=== PATIENT | female | born 1975 | race Two or more races ===

== ENCOUNTER 2017-01-13 01:22 | Emergency (ER) | payer OTHER ==
[2017-01-13 01:50] VITALS: BP 142/78; PULSE 93; TEMP 98; BMI 32.8
[2017-01-13] MEDS ORDERED: SODIUM CHLORIDE 1,000 ML IV STA (02:02)
[2017-01-13] MEDS ORDERED: morphine CARPU-JECT 4 MG/1 ML DISP.SYRIN IVPUSH ONE (02:02)
[2017-01-13] MEDS ORDERED: ONDANSETRON 4 MG/2 ML VIAL IVPB ONE (02:02)
--- NOTE | 2017-01-13 02:03 | PDOC ---
History of Present Illness - General Chief Complaint: Pain, Acute Stated Complaint: ABD PAIN,DIARRHEA Time Seen by Provider: 01/13/17 01:45 History Source: Patient Exam Limitations: No Limitations - History of Present Illness Travel History: No Initial Comments: 01/13/17 01:56 41yo Female patient w/ h/o DM presents to ED c/o abd pain x 2 days with nausea, diarrhea and bloating. Patient states she took Imodium for sx relief, which her stools went from diarrhea to soft, but abd pain remain. She describes pain as sharp and in waves. No change in appetite. Last FS at 8pm 287: 10 units of Novolog taken. Patient denies CP, Back pain, vomiting, constipation, fever, diff breathing, dysuria, hematuria, rectal bleeding or any other complaints at this time. Timing/Duration: reports: getting worse Quality: reports: moderate, sharpness Abdominal Pain Onset Location: reports: RLQ, LLQ Pain Radiation: reports: no radiation Activities at Onset: reports: no specific activity Treatment Prior to Arrive: improves with: other (Imodium) Aggravating Factors: worse with: None, Defecation, Eating, Emotional upset, Exertion, [place], Movement, Voiding, Change in position Alleviating Factors: worse with: None, Belching, Shallow Breathing, Defecation, Eating, Holding Breath, Passing Gas, Change in Position, Rest, Voiding, Vomiting Past History - Travel Traveled outside of the country in the last 30 days: No Close contact w/someone who was outside of country & ill: No - Past Medical History Allergies/Adverse Reactions: Allergies Allergy/AdvReac Type Severity Reaction Status Date / Time No Known Allergies Allergy Verified 01/13/17 01:45 Home Medications: Ambulatory Orders Insulin Aspart [Novolog] 10 units SQ TID 01/13/17 Oxycodone HCl/Acetaminophen [Endocet 5-325 Tablet] 1 each PO Q6H PRN #12 tablet MDD 4 tabs 01/13/17 Diabetes: Yes (IDDM) Thyroid Disease: Yes (BENIGN 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) - Family Disease History Family Disease History: Diabetes: Mother - Psycho/Social/Smoking Cessation Hx Anxiety: No Suicidal Ideation: No Smoking Status: Yes Smoking History: Current every day smoker Have you smoked in the past 12 months: No Number of Cigarettes Smoked Daily: 10 Information on smoking cessation initiated: No 'Breaking Loose' booklet given: 04/29/14 Hx Alcohol Use: No Drug/Substance Use Hx: No Substance Use Type: None Abd/GI Specific PMHX - Complaint Specific PMHX Colitis: No Diverticulitis: No Gall Bladder Disease: No GERD: No Hepatitis: No Irritable Bowel Synd (IBS): No Pancreatitis: No GI Ulcer Disease: No Review of Systems - Review of Systems Able to Perform ROS?: Yes Is the patient limited Icelandic proficient: No Constitutional: No: Chills, Fever Respiratory: No: Cough, Orthopnea, Shortness of Breath, Stridor, Wheezing Cardiac (ROS): No: Chest Pain, Edema, Lightheadedness, Palpitations, Syncope, Chest Tightness ABD/GI: Yes: Abdominal Distended, Diarrhea, Nausea, Abdominal cramping. No: Abd. Pain w/ defecation, Blood Streaked Bowels, Constipated, Difficulty Swallowing, Poor Appetite, Poor Fluid Intake, Rectal Bleeding, Vomiting, Indigestion, Tarry Stools : No: Burning, Dysuria, Discharge, Frequency, Flank Pain, Hematuria, Pain, Urgency Musculoskeletal: No: Back Pain Integumentary: No: Bruising, Erythema, Rash, Sweating Neurological: No: Headache, Numbness, Paresthesia, Seizure, Tingling, Tremors, Weakness All Other Systems: Reviewed and Negative *Physical Exam - Vital Signs Last Vital Signs Temp Pulse Resp BP Pulse Ox 98.0 F 93 H 20 142/78 99 01/13/17 01:46 01/13/17 01:46 01/13/17 01:46 01/13/17 01:46 01/13/17 01:46 - Physical Exam General Appearance: Yes: Nourished, Appropriately Dressed, Mild Distress. No: Apparent Distress, Moderate Distress, Severe Distress Respiratory/Chest: positive: Lungs Clear, Normal Breath Sounds. negative: Respiratory Distress, Accessory Muscle Use, Labored Respiration, Rapid RR, Crackles, Rales, Rhonchi, Stridor Cardiovascular: positive: Regular Rhythm, Regular Rate. negative: Edema, JVD, Murmur, Bradycardia, Tachycardia Gastrointestinal/Abdominal: positive: Soft, Increased Bowel Sounds, Distended, Tenderness (+ lower abd on deep palpation.). negative: Decreased BS, Guarding, Rebound, Hernia, Mass Musculoskeletal: positive: Normal Inspection. negative: CVA Tenderness Extremity: positive: Normal Capillary Refill, Normal Inspection, Normal Range of Motion Integumentary: positive: Normal Color, Dry, Warm Neurologic: positive: care management specialist II-XII NML intact, Fully Oriented, Alert, Normal Mood/ Affect, Normal Response, Motor Strength 03/31 ED Treatment Course - LABORATORY CBC & Chemistry Diagram: 01/13/17 03:15 01/13/17 03:15 *DC/Admit/Observation/Transfer Diagnosis at time of Disposition: Gastroenteritis Abdominal pain Qualifiers: Abdominal location: lower abdomen, unspecified Qualified Code(s): R10.30 - Lower abdominal pain, unspecified - Discharge Dispostion Disposition: HOME Condition at time of disposition: Improved Admit: No - Prescriptions Prescriptions: Oxycodone HCl/Acetaminophen [Endocet 5-325 Tablet] 1 each PO Q6H PRN #12 tablet MDD 4 tabs PRN Reason: Severe Pain - Referrals Referrals: Gregorio Li [Primary Care Provider] - Tremayne Astudillo MD [Staff Physician] - - Patient Instructions Printed Discharge Instructions: DI for Abdominal Pain-Adult, DI for Viral Gastroenteritis -- Adult Additional Instructions: FOLLOW UP WITH DR. ASTUDILLO REGARDING YOUR SYMPTOMS NEXT WEEK. CALL TO SCHEDULE APPOINTMENT. TAKE MEDICATIONS PRESCRIBED. DO NOT DRIVE, DRINK ALCOHOL, OR OPERATE HEAVY MACHINERY WHILE TAKING ENDOCET. START WITH LIGHT DIET THEN ADVANCE TOLERATED. RETURN IF YOUR SYMPTOMS WORSEN OR ANY CONCERNS FOR FURTHER EVALUATION. Print Language: MACEDONIAN - Post Discharge Activity Work/School Note: Back to Work
[2017-01-13] MEDS ORDERED: morphine CARPU-JECT 4 MG/1 ML DISP.SYRIN ONE (02:34)
[2017-01-13 02:35] LABS: URINE APPEARANCE CLEAR; URINE BILIRUBIN NEGATIVE (NEGATIVE); URINE BLOOD NEGATIVE (NEGATIVE); URINE COLOR STRAW; URINE GLUCOSE (UA) 3+ (NEGATIVE); URINE KETONE NEGATIVE (NEGATIVE); URINE LEUK ESTERASE NEGATIVE (NEGATIVE); URINE NITRITE NEGATIVE (NEGATIVE); URINE PROTEIN NEGATIVE (NEGATIVE); URINE UROBILINOGEN NEGATIVE E.U./dl (0.2-1.0)
--- NOTE | 2017-01-13 03:03 | PDOC ---
[id number] 01/13/17 01:46 01/13/17 01:46 01/13/17 01:46 01/13/17 01:46 01/13/17 01:46 ED Treatment Course - LABORATORY CBC & Chemistry Diagram: 01/13/17 03:15 01/13/17 03:15 - ADDITIONAL ORDERS Additional order review: Laboratory Results 01/13/17 02:15 Urine Color Straw Urine Appearance Clear Urine pH 6.0 Ur Specific [place] 1.024 Urine Protein Negative Urine Glucose (UA) 3+ H Urine Ketones Negative Urine Blood Negative Urine Nitrite Negative Urine Bilirubin Negative Urine Urobilinogen Negative Ur Leukocyte Esterase Negative Urine HCG, Qual Negative - Medications Given in the ED: ED Medications Discontinued Medications Generic Name Dose Route Start Last Admin Trade Name Freq PRN Reason Stop Dose Admin Sodium Chloride 1,000 mls @ 1,000 mls/hr 01/13/17 02:02 01/13/17 02:32 Normal Saline - IV 01/13/17 03:01 1,000 mls/hr ASDIR STA Administration Morphine Sulfate 4 mg 01/13/17 02:02 01/13/17 02:32 Morphine Injection - IVPUSH 01/13/17 02:03 4 mg ONCE ONE Administration Ondansetron HCl 4 mg 01/13/17 02:02 01/13/17 02:46 Zofran Injection IVPB 01/13/17 02:03 4 mg ONCE ONE Administration Medical Decision Making - Medical Decision Making 01/13/17 03:02 agree with care from DONOVAN Barrios *DC/Admit/Observation/Transfer Diagnosis at time of Disposition: Abdominal pain - Discharge Dispostion Condition at time of disposition: Stable
[2017-01-13 03:31] LABS: MCH 29.8 pg (25.7-33.7); MCHC 34.2 g/dl (32.0-36.0); MEAN CELL VOLUME 87.3 fl (80-96); MEAN PLT VOLUME 9.2 fl (7.5-11.1); PLATELET COUNT 280 K/MM3 (134-434); RDW 13.8 % (11.6-15.6); WHITE BLOOD COUNT 10.8 K/mm3 (4.0-10.0)
[2017-01-13 03:54] LABS: ALBUMIN 3.5 g/dl (3.4-5.0); ALK PHOS 77 U/L (45-117); AMYLASE 43 U/L (25-115); ANION GAP 10 (8-16); BILIRUBIN,TOTAL 0.1 mg/dL (0.2-1.0); CALCIUM 8.6 mg/dL (8.5-10.1); CO2 24 mmol/L (21-32); CREATININE 0.9 mg/dL (0.55-1.02); GLUCOSE,RANDOM 234 mg/dL (74-106); SGOT/AST 6 U/L (15-37); SGPT/ALT 15 U/L (12-78); TOT PROT 6.7 g/dl (6.4-8.2)
[2017-01-13] MEDS ORDERED: PANTOPRAZOLE SODIUM 40 MG in SODIUM CHLORIDE 100 ML IVPB ONE (04:59)
== END 2017-01-13 05:30 | disposition home or self-care (01) ==
LOC: JER 01:22
PROC: 3E033GC Introduction of Other Therapeutic Substance into Peripheral Vein, Percutaneous Approach (ICD-10-PCS; principal; 2017-01-13)
DX: K52.9 Noninfective gastroenteritis and colitis, unspecified (principal); E10.9 Type 1 diabetes mellitus without complications; Z79.4 Long term (current) use of insulin; D35.2 Benign neoplasm of pituitary gland
CPT/HCPCS: 36415; 74177-TC; 80053; 81003; 82150; 83690; 84703; 85027; 87086; 87186; 96374; 96375; 99281-25

== ENCOUNTER 2017-01-15 00:53 | Emergency (ER) | payer OTHER ==
[2017-01-15 01:04] VITALS: BP 141/79; PULSE 112; TEMP 98; BMI 32.8
[2017-01-15] MEDS ORDERED: DIPHTH,PERTUSS(ACELL),TET VAC 0.5 ML VIAL IM ONE (02:16)
[2017-01-15] MEDS ORDERED: CLINDAMYCIN 600MG PREMIX IVPB 50 ML IVPB ONE (02:16)
--- NOTE | 2017-01-15 02:21 | PDOC ---
History of Present Illness - General History Source: Patient Exam Limitations: No Limitations - History of Present Illness Initial Comments: 01/15/17 02:27 The patient is a 41 year old female with a significant past medical history of diabetes, presenting to the Emergency Department with a right finger laceration. She reports that her fingers were caught in a steel door two hours ago when someone accidentally shut the door on her hand. She reports a laceration to pointer finger and a small laceration to the back of her middle finger. She states that she has full range of motion of her fingers, and admits to minimal bleeding. She is unaware of the date of her last tetanus vaccination. Patient states she is right hand dominant. The patient denies any other injury. Patient denies numbness or tingling to the fingers. Patient denies fever, chills, and cough. Patient denies nausea, vomiting, and diarrhea. <Janelle Ford - Last Filed: 01/15/17 03:45> <Dayana Castillo - Last Filed: 01/15/17 21:29> - General Chief Complaint: Injury Stated Complaint: RIGHT FINGER INJURY Time Seen by Provider: 01/15/17 02:01 Past History <Janelle Ford - Last Filed: 01/15/17 03:45> - Past Medical History Diabetes: Yes (IDDM) Thyroid Disease: Yes (BENIGN 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) - Family Disease History Family Disease History: Diabetes: Mother - Immunization History Immunization Up to Date: No - Psycho/Social/Smoking Cessation Hx Anxiety: No Suicidal Ideation: No Smoking Status: Yes Smoking History: Current every day smoker Have you smoked in the past 12 months: No Number of Cigarettes Smoked Daily: 10 Information on smoking cessation initiated: No 'Breaking Loose' booklet given: 04/29/14 Hx Alcohol Use: No Drug/Substance Use Hx: No Substance Use Type: None <Dayana Castillo - Last Filed: 01/15/17 21:29> - Past Medical History Allergies/Adverse Reactions: Allergies Allergy/AdvReac Type Severity Reaction Status Date / Time No Known Allergies Allergy Verified 01/13/17 01:45 Home Medications: Ambulatory Orders Clindamycin HCl [Cleocin HCl] 300 mg PO QID #28 capsule 01/15/17 Clindamycin [Cleocin -] 300 mg PO Q6HPO #28 capsule 01/15/17 Insulin (LOG) Aspart [NovoLOG -] 10 units SQ TID 01/15/17 Review of Systems - Review of Systems Able to Perform ROS?: Yes Comments:: 01/15/17 02:28 GENERAL/CONSTITUTIONAL: No fever or chills. No weakness. HEAD, EYES, EARS, NOSE AND THROAT: No change in vision. No ear pain or discharge. No sore throat. CARDIOVASCULAR: No chest pain or shortness of breath. RESPIRATORY: No cough, wheezing, or hemoptysis. GASTROINTESTINAL: No nausea, vomiting, diarrhea or constipation. GENITOURINARY: No dysuria, frequency, or change in urination. MUSCULOSKELETAL: + laceration to right index finger, + laceration to back of right middle finger. No muscle swelling or pain. No neck or back pain. SKIN: No rash NEUROLOGIC: No headache, vertigo, loss of consciousness, or change in strength/ sensation. ENDOCRINE: No increased thirst. No abnormal weight change. HEMATOLOGIC/LYMPHATIC: No anemia, easy bleeding, or history of blood clots. ALLERGIC/IMMUNOLOGIC: No hives or skin allergy. <Janelle Ford - Last Filed: 01/15/17 03:45> *Physical Exam - Vital Signs Last Vital Signs Temp Pulse Resp BP Pulse Ox 98 F 112 H 20 141/79 98 01/15/17 01:01 01/15/17 01:01 01/15/17 01:01 01/15/17 01:01 01/15/17 01:01 - Physical Exam Comments: 01/15/17 02:29 GENERAL: Awake, alert, and fully oriented, in no acute distress HEAD: No signs of trauma EYES: PERRLA, EOMI, sclera anicteric, conjunctiva clear ENT: Auricles normal inspection, hearing grossly normal, nares patent, oropharynx clear without exudates. Moist mucosa NECK: Normal ROM, supple, no lymphadenopathy, JVD, or masses LUNGS: Breath sounds equal, clear to auscultation bilaterally. No wheezes, and no crackles HEART: Regular rate and rhythm, normal S1 and S2, no murmurs, rubs or gallops ABDOMEN: Soft, nontender, normoactive bowel sounds. No guarding, no rebound. No masses EXTREMITIES: 1cm laceration to dorsal aspect of index finger, at the DIP. 1 cm, shallow laceration to volar aspect of index finger, at PIP joint. 1 cm, shallow laceration to volar aspect of middle finger, at DIP. Normal range of motion, no edema. No clubbing or cyanosis. No cords, or erythema NEUROLOGICAL: Cranial nerves II through XII grossly intact. Normal speech, normal gait SKIN: Warm, Dry, normal turgor, no rashes noted. <Janelle Ford - Last Filed: 01/15/17 03:45> - Vital Signs Last Vital Signs Temp Pulse Resp BP Pulse Ox 98 F 112 H 20 141/79 98 01/15/17 01:01 01/15/17 01:01 01/15/17 01:01 01/15/17 01:01 01/15/17 01:01 <Dayana Castillo - Last Filed: 01/15/17 21:29> ED Treatment Course - LABORATORY CBC & Chemistry Diagram: 01/15/17 02:40 01/15/17 02:40 - RADIOLOGY Radiology Studies Ordered: 01/15/17 03:45 Hand XRay As reviewed by Dr. Aryan Douglas IMPRESSION: Normal right second and third fingers. <Janelle Ford - Last Filed: 01/15/17 03:45> - LABORATORY CBC & Chemistry Diagram: 01/15/17 02:40 01/15/17 02:40 <Dayana Castillo - Last Filed: 01/15/17 21:29> Medical Decision Making - Medical Decision Making 01/15/17 21:26 Pt comes with shallow cuts to her right dominant 2nd and 3rd fingers at the DIP and PIP. She has FROM, good strength and sensation intact. XRAY normal; She will be placed in an index finger splint, as her laceration was dermabonded. She received IV clindamycin 1 dose and she will have clinda QID x 7 days. She also got a tetanus vaccine. Pt has DM; she understands to return for any redness swelling or infection of the fingers <Dayana Castillo - Last Filed: 01/15/17 21:29> *DC/Admit/Observation/Transfer - Attestations Scribe Attestion: 01/15/17 02:34 Documentation prepared by Janelle Ford, acting as nurses medical assistants phlebotomists for Dayana Castillo MD. <Janelle Ford - Last Filed: 01/15/17 03:45> - Discharge Dispostion Admit: No <Dayana Castillo - Last Filed: 01/15/17 21:29> Diagnosis at time of Disposition: Finger laceration, Tetanus toxoid inoculation - Discharge Dispostion Disposition: HOME Condition at time of disposition: Stable - Prescriptions Prescriptions: Clindamycin [Cleocin -] 300 mg PO Q6HPO #28 capsule Clindamycin HCl [Cleocin HCl] 300 mg PO QID #28 capsule - Referrals Referrals: Gregorio Li [Primary Care Provider] - - Patient Instructions Printed Discharge Instructions: Tetanus, Diphtheria (Td) Vaccine, DI for Laceration Repair -- Finger
[2017-01-15 02:49] LABS: BASOPHIL 0.5 % (0-2.0); EOSINOPHIL 0.9 % (0-4.5); MCH 29.6 pg (25.7-33.7); MCHC 34.3 g/dl (32.0-36.0); MEAN CELL VOLUME 86.1 fl (80-96); MEAN PLT VOLUME 8.6 fl (7.5-11.1); NEUTROPHILS 73.9 % (42.8-82.8); PLATELET COUNT 331 K/MM3 (134-434); RDW 13.9 % (11.6-15.6)
[2017-01-15] MEDS ORDERED: CLINDAMYCIN PHOSPHATE 600 MG/4 ML VIAL ONE (03:04)
[2017-01-15 03:17] LABS: ALBUMIN 3.7 g/dl (3.4-5.0); ANION GAP 14 (8-16); BILIRUBIN,TOTAL 0.2 mg/dL (0.2-1.0); CALCIUM 9.9 mg/dL (8.5-10.1); CO2 24 mmol/L (21-32); CREATININE 0.9 mg/dL (0.55-1.02); GLUCOSE,RANDOM 256 mg/dL (74-106); SGOT/AST 7 U/L (15-37); SGPT/ALT 19 U/L (12-78)
[2017-01-15 03:18] LABS: ALK PHOS 82 U/L (45-117)
== END 2017-01-15 03:54 | disposition home or self-care (01) ==
LOC: JER 00:53
PROC: 0HQFXZZ Repair Right Hand Skin, External Approach (ICD-10-PCS; principal; 2017-01-15)
PROC: 3E0234Z Introduction of Serum, Toxoid and Vaccine into Muscle, Percutaneous Approach (ICD-10-PCS; 2017-01-15)
PROC: 3E03329 Introduction of Other Anti-infective into Peripheral Vein, Percutaneous Approach (ICD-10-PCS; 2017-01-15)
DX: S61.210A Laceration without foreign body of right index finger without damage to nail, initial encounter (principal); S61.212A Laceration without foreign body of right middle finger without damage to nail, initial encounter; W23.0XXA Caught, crushed, jammed, or pinched between moving objects, initial encounter; Y93.89 Activity, other specified; Y92.89 Other specified places as the place of occurrence of the external cause
CPT/HCPCS: 36415; 73140-TC-RT; 80053; 85025; 99281-25

== ENCOUNTER 2017-03-19 13:59 | Emergency (ER) | payer OTHER ==
[2017-03-19 14:08] VITALS: BP 124/70; PULSE 86; TEMP 98.4; BMI 31.3
--- NOTE | 2017-03-19 14:50 | PDOC ---
History of Present Illness - General Chief Complaint: Toothache Stated Complaint: TOOTHACHE Time Seen by Provider: 03/19/17 14:46 History Source: Patient Exam Limitations: No Limitations - History of Present Illness Initial Comments: 03/19/17 14:47 41 yr female with c/o pain to the right lower tooth for 2 days. no fever. pt taking motrin states providing relief. Pt has a partial bridge in her lower mouth. Past History - Past Medical History Allergies/Adverse Reactions: Allergies Allergy/AdvReac Type Severity Reaction Status Date / Time No Known Allergies Allergy Verified 03/19/17 14:05 Home Medications: Ambulatory Orders Insulin (LOG) Aspart [NovoLOG -] 10 units SQ TID 01/15/17 Penicillin V Potassium [Pen Vee K -] 250 mg PO QID #28 tablet 03/19/17 Diabetes: Yes (IDDM) Thyroid Disease: Yes (BENIGN 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) - Family Disease History Family Disease History: Diabetes: Mother - Immunization History Immunization Up to Date: No - Psycho/Social/Smoking Cessation Hx Anxiety: No Suicidal Ideation: No Smoking Status: Yes Smoking History: Current every day smoker Have you smoked in the past 12 months: No Number of Cigarettes Smoked Daily: 10 Information on smoking cessation initiated: No 'Breaking Loose' booklet given: 04/29/14 Hx Alcohol Use: No Drug/Substance Use Hx: No Substance Use Type: None *Physical Exam - Vital Signs Last Vital Signs Temp Pulse Resp BP Pulse Ox 98.4 F 86 18 124/70 99 03/19/17 14:05 03/19/17 14:05 03/19/17 14:05 03/19/17 14:05 03/19/17 14:05 - Physical Exam General Appearance: Yes: Nourished, Appropriately Dressed HEENT: positive: EOMI, KENDRICK, TMs Normal, Pharynx Normal, Other (right lower tooth #27 with redness suroounding the root, inflamed, tartar noted, no abscess) Neck: positive: Supple Respiratory/Chest: positive: Lungs Clear, Normal Breath Sounds Cardiovascular: positive: Regular Rhythm, Regular Rate Extremity: positive: Normal Capillary Refill, Normal Inspection, Normal Range of Motion Integumentary: positive: Normal Color, Dry, Warm Neurologic: positive: Fully Oriented, Alert, Normal Mood/Affect, Normal Response , Motor Strength 5/5 Medical Decision Making - Medical Decision Making 03/19/17 14:52 cc: tooth infection, swelling will give Pen VK continue motrin follow with dentist on Monday *DC/Admit/Observation/Transfer Diagnosis at time of Disposition: Toothache - Discharge Dispostion Disposition: HOME Condition at time of disposition: Good - Prescriptions Prescriptions: Penicillin V Potassium [Pen Vee K -] 250 mg PO QID #28 tablet - Referrals Referrals: Gregorio Li [Primary Care Provider] - - Patient Instructions Additional Instructions: follow with your dentist this week take the Penicillin as directed for 7 days gargle with warm salt water 4-5 times a day
== END 2017-03-19 14:52 | disposition home or self-care (01) ==
LOC: JERFT 13:59 → SUPCPDRO 13:59 → JERFT 14:52
DX: K08.89 Other specified disorders of teeth and supporting structures (principal)
CPT/HCPCS: 99281-25

== ENCOUNTER 2017-05-20 12:12 | Emergency (ER) | payer OTHER ==
[2017-05-20 12:32] VITALS: BP 149/90; PULSE 97; TEMP 98; BMI 31.3
--- NOTE | 2017-05-20 13:03 | PDOC ---
"History of Present Illness - General Chief Complaint: Pain Stated Complaint: PAIN Time Seen by Provider: 05/20/17 12:46 History Source: Patient Exam Limitations: No Limitations - History of Present Illness Initial Comments: 05/20/17 12:52 CHIEF COMPLAINT: Injury to right Ankle, foot and lower leg HISTORY OF PRESENT ILLNESS: Patient is a 41-year-old female, history of insulin- dependent diabetes on NovoLog. Patient reports this a.m. was playing around in her house. Fell over something in her daughters Room injured her right foot, ankle and lower leg. There is swelling and bruising to the right lateral foot. Unable to bear weight to the right foot. REVIEW OF SYSTEMS: GENERAL: Afebrile, A&O x3 RESPIRATORY: No cough, wheezing, or hemoptysis. CARDIAC: No CP or SOB MUSCULOSKELETAL: Pain to right lateral foot, ankle and lower leg. SKIN : No erythema, no edema, no deformity. Bruising to the right lateral foot. NEUROLOGICAL: Denies any numbness or tingling. PHYSICAL EXAM: GENERAL: The patient is awake, alert, and fully oriented, in no acute distress. HEAD: Normal with no signs of trauma. RESPIRATORY: Lungs clear bilaterally no rhonchi, rales, or wheezes CARDIAC: S1-S2 audible, no murmur rub or gallop EXTREMITIES: Decreased range of motion to right foot ankle and knee related to pain, no joint laxity noted, ecchymosis noted to right lateral foot, no deformity, no abrasions ,no edema. Tenderness to right lateral foot and right lateral ankle. Less than 2 second cap refill, +3 pedal pulse. MUSCULOSKELETAL: No spinal point tenderness. SKIN: Warm, Dry, normal turgor, no erythema, no edema . Bruising to the right lateral foot with mild edema. Past History - Past Medical History Allergies/Adverse Reactions: Allergies Allergy/AdvReac Type Severity Reaction Status Date / Time No Known Allergies Allergy Verified 05/20/17 12:28 Home Medications: Ambulatory Orders Insulin (LOG) Aspart [NovoLOG -] 10 units SQ TID 01/15/17 Diabetes: Yes (IDDM) Thyroid Disease: Yes (BENIGN 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) - Family Disease History Family Disease History: Diabetes: Mother - Immunization History Immunization Up to Date: No - Psycho/Social/Smoking Cessation Hx Anxiety: No Suicidal Ideation: No Smoking Status: Yes Smoking History: Current every day smoker Have you smoked in the past 12 months: Yes Number of Cigarettes Smoked Daily: 10 Information on smoking cessation initiated: Yes 'Breaking Loose' booklet given: 05/20/17 Hx Alcohol Use: No Drug/Substance Use Hx: No Substance Use Type: None *Physical Exam - Vital Signs Last Vital Signs Temp Pulse Resp BP Pulse Ox 98.0 F 97 H 18 149/90 100 05/20/17 12:29 05/20/17 12:29 05/20/17 12:29 05/20/17 12:29 05/20/17 12:29 ED Treatment Course - RADIOLOGY Radiology Studies Ordered: Category Date Time Status ANKLE & FOOT-RIGHT* [RAD] Stat Radiology 05/20/17 12:49 Ordered LEG TIB/FIB-RIGHT [RAD] Stat Radiology 05/20/17 12:49 Ordered Medical Decision Making - Medical Decision Making 05/20/17 13:03 A/P: Patient with injury to right lateral foot, ankle and lower leg. Urine sent, sent to x-ray to rule out acute fracture. 05/20/17 13:05 This report was requested by: Liz Heath | Reference #: [id number] You have not added a ROBE number. Keeping your ROBE number(s) up to date on the My ROBE Numbers page will enable the separation of your prescriptions from others ' in the search results. Others' Prescriptions Patient Name: Lou Styles Date: 1975 Address: [address] [place] [address] Sex: Female Rx Written Rx Dispensed Drug Quantity Days Supply Prescriber Name 05/04/2017 05/13/2017 oxycodone-acetaminophen 10-325 mg tab 60 20 Elzholz, Edwin 04/11/2017 04/14/2017 endocet 10-325 mg tablet 90 30 Elzholz, Edwin 03/17/2017 03/17/2017 endocet 10-325 mg tablet 90 30 Elzholz, Edwin 02/02/2017 02/06/2017 endocet 10-325 mg tablet 90 30 Elzholz, Edwin 01/09/2017 01/10/2017 endocet 10-325 mg tablet 120 30 Elzholz, Edwin 12/08/2016 12/12/2016 endocet 10-325 mg tablet 120 30 Elzholz, Edwin 11/18/2016 11/23/2016 morphine sulf er 15 mg tablet 60 30 Elzholkatie, Edwin 11/03/2016 11/12/2016 endocet 10-325 mg tablet 120 30 Elzholz, Edwin 10/10/2016 10/24/2016 morphine sulf er 15 mg tablet 60 30 Elzholz, Edwin 10/10/2016 10/15/2016 endocet 10-325 mg tablet 120 30 Elzholz, Edwin 09/16/2016 09/21/2016 morphine sulf er 15 mg tablet 60 30 Elzholz, Edwin 09/16/2016 09/16/2016 endocet 10-325 mg tablet 120 30 Aniyah, Edwin Patient Name: Lou Styles Date: 1975 Address: [address] [place] [address] Sex: Female Rx Written Rx Dispensed Drug Quantity Days Supply Prescriber Name 01/13/2017 01/15/2017 oxycodone-acetaminophen 5-325 mg tab 12 3 Mikey Barrios Patient reports not taking pain medication in one week, will give 2 Percocet while in emergency department. 05/20/17 13:47 2 percocet given while in Emergency Room. Xray demonstrates healed proximal fibular fracture, old third and fourth healed metatarsal fracture with an acute oblique fifth metatarsal fracture. George wrap, surgical shoe placed on with crutches for nonweightbearing status follow-up with orthopedics Patient already has pain medication. I discussed the physical exam findings, ancillary test results and final diagnoses with the patient. I answered all of the patient's questions. The patient was satisfied with the care received and felt comfortable with the discharge plan and treatment plan. The patient will call to arrange follow-up and will return to the Emergency Department with any new, persistent or worsening symptoms. *DC/Admit/Observation/Transfer Diagnosis at time of Disposition: Metatarsal bone fracture Qualifiers: Encounter type: initial encounter Metatarsal bone: fifth Fracture type: closed Fracture alignment: nondisplaced Laterality: right Qualified Code(s): S92.354A - Nondisplaced fracture of fifth metatarsal bone, right foot, initial encounter for closed fracture - Discharge Dispostion Disposition: HOME Condition at time of disposition: Good Admit: No - Referrals Referrals: Gregorio Li [Primary Care Provider] - Raul Irvin MD [Staff Physician] - - Patient Instructions Printed Discharge Instructions: DI for Toe Fracture Additional Instructions: 1. Please return to the emergency department with any redness, swelling, increased pain, or any other concerns. 2. Keep splint on. 3. Please follow up in the office of Dr. Irvin within a week if pain persists. 4. No weightbearing 5. Ice and elevate when at rest."
[2017-05-20] MEDS ORDERED: OXYCODONE/APAP 5/325MG COMBO TABLET PO ONE (13:06)
[2017-05-20] MEDS ORDERED: OXYCODONE/APAP 5/325MG COMBO TABLET ONE (13:08)
== END 2017-05-20 13:59 | disposition home or self-care (01) ==
LOC: JERFT 12:12
DX: S92.354A Nondisplaced fracture of fifth metatarsal bone, right foot, initial encounter for closed fracture (principal); W18.09XA Striking against other object with subsequent fall, initial encounter; Y93.89 Activity, other specified; Y92.032 Bedroom in apartment as the place of occurrence of the external cause
CPT/HCPCS: 73590-TC-RT; 73610-TC-RT; 73630-TC-RT; 84703; 99282-25

== ENCOUNTER 2017-06-19 17:40 | Emergency (ER) | payer OTHER ==
--- NOTE | 2017-06-19 17:50 | PDOC ---
History of Present Illness - General Chief Complaint: Urinary Problem Stated Complaint: URINARY SYMPTOMS Time Seen by Provider: 06/19/17 17:49 History Source: Patient Exam Limitations: No Limitations - History of Present Illness Initial Comments: 06/19/17 17:50 Patient is a 41 year old female with history of DM and asthma presenting with sore throat, "painful kidneys", blood in her urine and pain on urination for one day. Patient stated all symptoms started acutely last night and have been getting worse. Flank pain is bilateral, 8/10, intermittent and sharp. Suprapubic pain is constant, worse when urinating and associated with nausea. Patient has not tried anything for the pain. Patient also endorses pink urine with small clots. Her LMP was 1 week ago and shorter than normal. Patient states she had a similar incident 9 years ago and was hospitalized for several days with high fever. Last saw PCP, Gregorio Li, 2-3 months ago Past History - Past Medical History Allergies/Adverse Reactions: Allergies Allergy/AdvReac Type Severity Reaction Status Date / Time No Known Allergies Allergy Verified 06/19/17 17:44 Home Medications: Ambulatory Orders Insulin (LOG) Aspart [NovoLOG -] 10 units SQ TID 01/15/17 Nitrofurantoin Monohyd/M-Cryst [Macrobid -] 100 mg PO BID #14 capsule 06/19/17 Asthma: Yes Diabetes: Yes (IDDM) Thyroid Disease: Yes (BENIGN 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) Other medical history: BENIGN PITUITARY TUMOR - Family Disease History Family Disease History: Diabetes: Mother - Immunization History Immunization Up to Date: No - Psycho/Social/Smoking Cessation Hx Anxiety: No Suicidal Ideation: No Smoking Status: Yes Smoking History: Current every day smoker Have you smoked in the past 12 months: Yes Number of Cigarettes Smoked Daily: 10 Information on smoking cessation initiated: Yes 'Breaking Loose' booklet given: 06/19/17 Hx Alcohol Use: No Drug/Substance Use Hx: No Substance Use Type: None Review of Systems - Review of Systems Able to Perform ROS?: Yes Is the patient limited Hebrew proficient: No Constitutional: Yes: Chills. No: Fever HEENTM: Yes: Throat Pain Respiratory: No: Shortness of Breath Cardiac (ROS): Yes: Chest Pain (sharp, transient and now resolved) ABD/GI: Yes: Nausea. No: Vomiting : Yes: Burning, Dysuria, Flank Pain, Hematuria, Pain (suprapubic, worse with urination) *Physical Exam - Vital Signs Last Vital Signs Temp Pulse Resp BP Pulse Ox 98.6 F 80 18 113/71 99 06/19/17 17:40 06/19/17 17:40 06/19/17 17:40 06/19/17 17:40 06/19/17 17:40 - Physical Exam General Appearance: Yes: Nourished, Appropriately Dressed, Mild Distress, Other (Moved cautiously, appeared in pain, preferred sitting to laying supine) HEENT: positive: EOMI, KENDRICK, Pharyngeal Erythema (mild). negative: Tonsillar Exudate, Tonsillar Erythema Respiratory/Chest: positive: Lungs Clear, Normal Breath Sounds. negative: Chest Tender Cardiovascular: positive: Regular Rhythm, Regular Rate Gastrointestinal/Abdominal: positive: Normal Bowel Sounds, Tender (periumbilical ), Soft. negative: Distended, Rebound, Mass Musculoskeletal: positive: Other (No tenderness to palpation of back and b/l flank). negative: CVA Tenderness, Vertebral Tenderness Integumentary: positive: Normal Color, Dry, Warm Neurologic: positive: human resources services specialist II-XII NML intact, Fully Oriented, Alert ED Treatment Course - LABORATORY CBC & Chemistry Diagram: 06/19/17 18:30 06/19/17 18:30 Medical Decision Making - Medical Decision Making 06/19/17 17:50 41 year old female with b/l flank pain, dysurea and hematurea DDx includes but is not limited to UTI, nephrolitithisis, pyelonephritis, renal colic, ectopic , electrolyte abnormalities, and muscle strain Fluids, pain management, nausea management CBC CMP, UA, HCG Pending results of HCG, consider CT w/o contrast to evaluate for hydronephrosis and stones Observe and reevaluate. 06/19/17 18:55 CBC WBC 10.6 K/mm3 (4.0-10.8) 06/19/17 18:30 RBC 4.90 M/mm3 (3.60-5.2) 06/19/17 18:30 Hgb 14.2 GM/dl (10.7-15.3) 06/19/17 18:30 Hct 42.1 % (32.4-45.2) 06/19/17 18:30 MCV 86.1 fl (80-96) 06/19/17 18:30 MCH 29.0 pg (25.7-33.7) 06/19/17 18:30 MCHC 33.7 g/dl (32.0-36.0) 06/19/17 18:30 RDW 12.8 % (11.6-15.6) 06/19/17 18:30 Plt Count 299 K/MM3 (134-434) 06/19/17 18:30 MPV 8.7 fl (7.5-11.1) 06/19/17 18:30 Neutrophils % 73.1 % (42.8-82.8) 06/19/17 18:30 Lymphocytes % 17.5 % (8-40) 06/19/17 18:30 Monocytes % 6.6 % (3.8-10.2) 06/19/17 18:30 Eosinophils % 1.0 % (0-4.5) 06/19/17 18:30 Basophils % 1.8 % (0-2.0) 06/19/17 18:30 CBC within normal limits. 06/19/17 18:58 Urine Test Results Urine Color Yellow 06/19/17 17:03 Urine Appearance Cloudy 06/19/17 17:03 Urine pH 7.0 (4.5-8) D 06/19/17 17:03 Ur Specific [place] 1.020 (1.005-1.025) 06/19/17 17:03 Urine Protein 2+ (NEGATIVE) H 06/19/17 17:03 Urine Glucose (UA) 3+ (NEGATIVE) H 06/19/17 17:03 Urine Ketones Negative (NEGATIVE) 06/19/17 17:03 Urine Blood 3+ (NEGATIVE) 06/19/17 17:03 Urine Nitrite Negative (NEGATIVE) 06/19/17 17:03 Urine Bilirubin Negative (NEGATIVE) 06/19/17 17:03 Ur Leukocyte Esterase Trace (NEGATIVE) H 06/19/17 17:03 Urine RBC 15-25 /hpf (0-3) 06/19/17 17:03 Urine WBC 10-20 (3-5) 06/19/17 17:03 Ur Epithelial Cells Few /HPF 06/19/17 17:03 Urine Bacteria Few /hpf (NEGATIVE) 06/19/17 17:03 UA significant for elevated blood, protein and glucose Not concerning for significant infection with only trace LE HCG negative, ok to CT 06/19/17 19:09 Patient is stable with nausea well controlled but still c/o significant pain, 4 mg morphine Patient endorsed over to the night physician Awaiting results of the CT *DC/Admit/Observation/Transfer Diagnosis at time of Disposition: UTI (urinary tract infection) Qualifiers: Qualified Code(s): N30.00 - Acute cystitis without hematuria - Discharge Dispostion Disposition: HOME Condition at time of disposition: Stable - Prescriptions Prescriptions: Nitrofurantoin Monohyd/M-Cryst [Macrobid -] 100 mg PO BID #14 capsule - Patient Instructions Additional Instructions: Tylenol or Motrin as needed for pain. Take Macrobid 1 tablet twice a day for 7 days. Stay well hydrated. Return to the emergency department immediately with ANY new, persistent or worsening symptoms. Continue any medications as previously prescribed by your physician. You should follow up with your primary doctor as soon as possible regarding today's emergency department visit. . Please make sure your doctor reviews the results of your emergency evaluation. Thank you for coming to the Emergency Department today for your care. It was a pleasure to see you today. Please note that your evaluation is INCOMPLETE until you follow-up with your doctor.
[2017-06-19 17:56] VITALS: BP 113/71; PULSE 80; TEMP 98.6; BMI 31.3
[2017-06-19] MEDS ORDERED: KETOROLAC TROMETHAMINE 30 MG/1 ML VIAL IVPUSH ONE (18:16)
[2017-06-19] MEDS ORDERED: ONDANSETRON 4 MG/2 ML VIAL IVPUSH ONE (18:16)
[2017-06-19] MEDS ORDERED: SODIUM CHLORIDE 1,000 ML IV STA (18:16)
[2017-06-19 18:20] LABS: URINE APPEARANCE Cloudy; URINE BILIRUBIN Negative (NEGATIVE); URINE BLOOD 3+ (NEGATIVE); URINE GLUCOSE (UA) 3+ (NEGATIVE); URINE KETONE Negative (NEGATIVE); URINE NITRITE Negative (NEGATIVE)
[2017-06-19 18:22] LABS: URINE COLOR YELLOW; URINE LEUK ESTERASE TRACE (NEGATIVE); URINE PROTEIN 2+ (NEGATIVE)
[2017-06-19] MEDS ORDERED: KETOROLAC TROMETHAMINE 30 MG/1 ML VIAL ONE (18:27)
[2017-06-19] MEDS ORDERED: ONDANSETRON 4 MG/2 ML VIAL ONE (18:27)
--- NOTE | 2017-06-19 18:28 | PDOC ---
Attending Attestation - Resident Resident Name: Damaso Rivera - ED Attending Attestation I have performed the following: I have examined & evaluated the patient, The case was reviewed & discussed with the resident, I agree w/resident's findings & plan, Exceptions are as noted - HPI HPI: 06/19/17 18:26 Agree with the resident's HPI as documented in the electronic medical record. - Physicial Exam PE: 06/19/17 18:26 Agree with the resident's physical examination as documented in the electronic medical record. - Medical Decision Making 06/19/17 18:26 41-year-old female with history of diabetes presents to the emergency Department with complaints of lower abdominal pain, back pain and dysuria as well as hematuria since yesterday. Differential diagnosis includes but is not limited to: Renal colic, pyelonephritis, UTI, dehydration, electrolyte abnormality, toxic/metabolic derangement. Plan: 1. Labs 2. Urine analysis 3. Urine 4. Pain management 5. IV fluids for hydration 6. Antiemetics 7. If urine is negative will get abdominal imaging to rule out pyelonephritis and nephrolithiasis 8. Observe and reevaluate
[2017-06-19 18:45] LABS: BASOPHIL 1.8 % (0-2.0); MCHC 33.7 g/dl (32.0-36.0); MEAN CELL VOLUME 86.1 fl (80-96); MEAN PLT VOLUME 8.7 fl (7.5-11.1); NEUTROPHILS 73.1 % (42.8-82.8); PLATELET COUNT 299 K/MM3 (134-434); RDW 12.8 % (11.6-15.6); WHITE BLOOD COUNT 10.6 K/mm3 (4.0-10.8)
[2017-06-19 18:57] LABS: URINE BACTERIA FEW /hpf (NEGATIVE); URINE RBC 15-25 /hpf (0-3)
[2017-06-19 19:07] LABS: ALBUMIN 3.8 g/dl (3.5-5.0); ALK PHOS 78 U/L (32-92); ANION GAP 6 (8-16); BILIRUBIN,TOTAL 0.4 mg/dl (0.2-1.0); CALCIUM 9.2 mg/dl (8.4-10.2); CO2 26 mmol/L (22-28); CREATININE 0.9 mg/dl (0.6-1.3); GLUCOSE,RANDOM 231 mg/dl (74-106); SGOT/AST 13 U/L (10-42); SGPT/ALT 12 U/L (10-40); TOT PROT 6.4 g/dl (6.4-8.3)
[2017-06-19] MEDS ORDERED: CEFTRIAXONE 1 GM in DEXTROSE 5%-WATER - 50 ML IVPB ONE (19:19)
[2017-06-19] MEDS ORDERED: morphine CARPU-JECT 4 MG/1 ML DISP.SYRIN IVPUSH ONE (19:20)
[2017-06-19] MEDS ORDERED: cefTRIAXone SODIUM 1 GM VIAL ONE (19:22)
[2017-06-19] MEDS ORDERED: morphine CARPU-JECT 4 MG/1 ML DISP.SYRIN ONE (19:33)
--- NOTE | 2017-06-19 20:22 | PDOC ---
*Physical Exam - Vital Signs Last Vital Signs Temp Pulse Resp BP Pulse Ox 98.6 F 80 18 113/71 99 06/19/17 17:40 06/19/17 17:40 06/19/17 17:40 06/19/17 17:40 06/19/17 17:40 ED Treatment Course - LABORATORY CBC & Chemistry Diagram: 06/19/17 18:30 06/19/17 18:30 - ADDITIONAL ORDERS Additional order review: Laboratory Results 06/19/17 06/19/17 18:30 17:03 Sodium 133 L Potassium 3.9 Chloride 101 Carbon Dioxide 26 Anion Gap 6 L BUN 17 Creatinine 0.9 Creat Clearance w eGFR > 60 Random Glucose 231 H D Calcium 9.2 Total Bilirubin 0.4 AST 13 ALT 12 Alkaline Phosphatase 78 Total Protein 6.4 Albumin 3.8 Urine Color Yellow Urine Appearance Cloudy Urine pH 7.0 D Ur Specific [place] 1.020 Urine Protein 2+ H Urine Glucose (UA) 3+ H Urine Ketones Negative Urine Blood 3+ Urine Nitrite Negative Urine Bilirubin Negative Urine Urobilinogen 2.0 H Ur Leukocyte Esterase Trace H Urine RBC 15-25 Urine WBC 10-20 Ur Epithelial Cells Few Urine Bacteria Few Urine HCG, Qual Negative 06/19/17 18:30 RBC 4.90 MCV 86.1 MCHC 33.7 RDW 12.8 MPV 8.7 Neutrophils % 73.1 Lymphocytes % 17.5 Monocytes % 6.6 Eosinophils % 1.0 Basophils % 1.8 - Medications Given in the ED: ED Medications Discontinued Medications Generic Name Dose Route Start Last Admin Trade Name Freq PRN Reason Stop Dose Admin Sodium Chloride 1,000 mls @ 1,000 mls/hr 06/19/17 18:16 06/19/17 18:30 Normal Saline - IV 06/19/17 19:15 1,000 mls/hr ASDIR STA Administration Ceftriaxone Sodium 1 gm/ 50 mls @ 100 mls/hr 06/19/17 19:19 06/19/17 19:32 Dextrose IVPB 06/19/17 19:48 100 mls/hr ONCE ONE Administration Ketorolac Tromethamine 30 mg 06/19/17 18:16 06/19/17 18:33 Toradol Injection - IVPUSH 06/19/17 18:17 30 mg ONCE ONE Administration Morphine Sulfate 4 mg 06/19/17 19:20 06/19/17 19:35 Morphine Injection - IVPUSH 06/19/17 19:21 4 mg ONCE ONE Administration Ondansetron HCl 4 mg 06/19/17 18:16 06/19/17 18:30 Zofran Injection IVPUSH 06/19/17 18:17 4 mg ONCE ONE Administration Progress Note - Progress Note Progress Note: Care of this patient was transferred [place] from Dr. Weston at 1900 hrs. Patient is a 41-year-old female who comes in with urinary symptoms. Patient is also an insulin-dependent diabetic. Patient's white count was normal there is no left shift and she was afebrile Patient has a urinary tract infection Patient had a CAT scan that was negative for any obstructive uropathy Patient given ceftriaxone here in the emergency room and will be discharged home on Macrobid Patient has a primary care doctor to follow-up with. *DC/Admit/Observation/Transfer Diagnosis at time of Disposition: UTI (urinary tract infection) Qualifiers: Urinary tract infection type: acute cystitis Hematuria presence: without hematuria Qualified Code(s): N30.00 - Acute cystitis without hematuria - Discharge Dispostion Disposition: HOME Condition at time of disposition: Stable Admit: No - Prescriptions Prescriptions: Nitrofurantoin Monohyd/M-Cryst [Macrobid -] 100 mg PO BID #14 capsule - Patient Instructions Additional Instructions: Tylenol or Motrin as needed for pain. Take Macrobid 1 tablet twice a day for 7 days. Stay well hydrated. Return to the emergency department immediately with ANY new, persistent or worsening symptoms. Continue any medications as previously prescribed by your physician. You should follow up with your primary doctor as soon as possible regarding today's emergency department visit. . Please make sure your doctor reviews the results of your emergency evaluation. Thank you for coming to the Emergency Department today for your care. It was a pleasure to see you today. Please note that your evaluation is INCOMPLETE until you follow-up with your doctor.
== END 2017-06-19 20:26 | disposition home or self-care (01) ==
LOC: FER 17:40
PROC: 3E03329 Introduction of Other Anti-infective into Peripheral Vein, Percutaneous Approach (ICD-10-PCS; principal; 2017-06-19)
PROC: 3E0333Z Introduction of Anti-inflammatory into Peripheral Vein, Percutaneous Approach (ICD-10-PCS; 2017-06-19)
PROC: 3E033NZ Introduction of Analgesics, Hypnotics, Sedatives into Peripheral Vein, Percutaneous Approach (ICD-10-PCS; 2017-06-19)
PROC: 3E033GC Introduction of Other Therapeutic Substance into Peripheral Vein, Percutaneous Approach (ICD-10-PCS; 2017-06-19)
PROC: 3E0337Z Introduction of Electrolytic and Water Balance Substance into Peripheral Vein, Percutaneous Approach (ICD-10-PCS; 2017-06-19)
DX: N30.00 Acute cystitis without hematuria (principal)
CPT/HCPCS: 36415; 74176-TC; 80053; 81003; 81015; 84703; 85025; 87086; 87186; 96361; 96365; 96375; 99282-25

== ENCOUNTER 2017-07-06 13:22 | Emergency (ER) | payer OTHER ==
[2017-07-06 13:27] VITALS: BP 106/79; PULSE 97; TEMP 98.6; BMI 32.1
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
[2017-07-06] MEDS ORDERED: KETOROLAC TROMETHAMINE 60 MG/2 ML VIAL IM ONE (14:11)
[2017-07-06] MEDS ORDERED: KETOROLAC TROMETHAMINE 60 MG/2 ML VIAL ONE (14:18)
== END 2017-07-06 15:03 | disposition home or self-care (01) ==
LOC: JERFT 13:22
PROC: 3E0233Z Introduction of Anti-inflammatory into Muscle, Percutaneous Approach (ICD-10-PCS; principal; 2017-07-06)
DX: F07.81 Postconcussional syndrome (principal); G44.319 Acute post-traumatic headache, not intractable; M25.512 Pain in left shoulder; V43.52XA Car driver injured in collision with other type car in traffic accident, initial encounter; Y93.89 Activity, other specified; Y92.410 Unspecified street and highway as the place of occurrence of the external cause
CPT/HCPCS: 73000-TC-LT; 73030-TC-LT; 84703; 99281-25

== ENCOUNTER 2017-09-13 16:52 | Emergency (ER) | payer OTHER ==
[2017-09-13 17:14] VITALS: BP 143/84; PULSE 112; TEMP 98.7
[2017-09-13] MEDS ORDERED: traMADol HCL 50 MG TABLET PO ONE (17:43)
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
[2017-09-13] MEDS ORDERED: traMADol HCL 50 MG TABLET ONE (17:44)
== END 2017-09-13 17:52 | disposition home or self-care (01) ==
LOC: JERFT 16:52
DX: S05.01XA Injury of conjunctiva and corneal abrasion without foreign body, right eye, initial encounter (principal); W50.0XXA Accidental hit or strike by another person, initial encounter; Y93.89 Activity, other specified; Y92.038 Other place in apartment as the place of occurrence of the external cause; E11.69 Type 2 diabetes mellitus with other specified complication; Z79.84 Long term (current) use of oral hypoglycemic drugs; Z79.4 Long term (current) use of insulin; J45.909 Unspecified asthma, uncomplicated
CPT/HCPCS: 99281-25

== ENCOUNTER 2017-09-18 22:56 | Emergency (ER) | payer OTHER ==
[2017-09-18 23:18] VITALS: BP 146/84; PULSE 90; TEMP 98.3
--- NOTE | 2017-09-19 00:44 | PDOC ---
History of Present Illness - General History Source: Patient Exam Limitations: No Limitations - History of Present Illness Initial Comments: 09/19/17 00:51 The patient is a 41 year old female, with a significant past medical history of Asthma, DM, Pituitary tumour who presents to the emergency department with 2 hours of epigastric abdominal pain. Patient states she began developing this pain after eating today. Patient states states the pain makes her stomach feel hard and is associated with nausea. Patient reports one episode of loose stool. Patient reports elevated glucose at 280 this morning. Upon evaluation, patient feels her sugar is high and presents to the ED for further evaluation. She denies chest pain, headache or dizziness. She denies fever, chills, diarrhea or constipation. She denies dysuria, frequency, urgency or hematuria. Patient denies sick contacts or recent travel. Patient's LMP- 3 weeks ago. 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) - Family Disease History Family Disease History: Diabetes: Mother - Immunization History Immunization Up to Date: No - Suicide/Smoking/Psychosocial Hx Smoking Status: Yes Smoking History: Current every day smoker Have you smoked in the past 12 months: Yes Number of Cigarettes Smoked Daily: 10 Information on smoking cessation initiated: No 'Breaking Loose' booklet given: 09/13/17 Hx Alcohol Use: No Drug/Substance Use Hx: No Substance Use Type: None <Alexandra Kelley - Last Filed: 09/19/17 02:59> - Past Medical History Allergies/Adverse Reactions: Allergies Allergy/AdvReac Type Severity Reaction Status Date / Time No Known Allergies Allergy Verified 09/18/17 23:17 Home Medications: Ambulatory Orders Insulin (LOG) Aspart [NovoLOG -] 10 units SQ TID 01/15/17 Canagliflozin [Invokana] 100 mg PO ASDIR 09/13/17 Erythromycin 0.5% Eye Ointment [Erythromycin 0.5% Eye Ointment -] 0.5 inch AD ASDIR #1 tube 09/13/17 Insulin Glargine,Hum.rec.anlog [Lantus Solostar PEN (NF)] 0 units SQ HS Metformin HCl [Glucophage -] 500 mg PO BID 09/13/17 Tramadol HCl 50 mg PO Q6H #12 tablet MDD 200 mg 09/13/17 Abd/GI Specific PMHX - Complaint Specific PMHX Colitis: No Diverticulitis: No Gall Bladder Disease: No GERD: No Hepatitis: No Irritable Bowel Synd (IBS): No Pancreatitis: No GI Ulcer Disease: No <Alexandra Kelley - Last Filed: 09/19/17 02:59> Review of Systems - Review of Systems Able to Perform ROS?: Yes Comments:: 09/19/17 00:51 CONSTITUTIONAL: Absent: fever, no chills, no fatigue EYES: Absent: visual changes ENT: Absent: ear pain, no sore throat CARDIOVASCULAR: Absent: chest pain, no palpitations RESPIRATORY: Absent: cough, no SOB GI: +NAUSEA. +ABDOMINAL PAIN. Absent: no vomiting, no constipation, no diarrhea GENITOURINARY: Absent: dysuria, no frequency, no hematuria MUSCULOSKELETAL: Absent: back pain, no arthralgia, no myalgia SKIN: Absent: rash NEURO: Absent: headache <Leonor Walker - Last Filed: 09/19/17 00:51> *Physical Exam - Vital Signs Last Vital Signs Temp Pulse Resp BP Pulse Ox 98.3 F 90 20 146/84 100 09/18/17 23:15 09/18/17 23:15 09/18/17 23:15 09/18/17 23:15 09/18/17 23:15 - Physical Exam Comments: 09/19/17 00:52 GENERAL: Well-appearing, well-nourished. No apparent distress. HEENT: Normocephalic, atraumatic. PERRL, EOM intact. CARDIOVASCULAR: Normal S1, S2. Regular rate and rhythm. PULMONARY: Clear to auscultation bilaterally. ABDOMEN: +epigastric discomfort. Soft, non-distended, non-tender. EXTREMITIES: Normal ROM in all four extremities. No gross deformities. SKIN: Warm, dry. No rash NEUROLOGICAL: No focal neurological deficits. <Leonor Walker - Last Filed: 09/19/17 00:51> - Vital Signs Last Vital Signs Temp Pulse Resp BP Pulse Ox 98.3 F 90 20 146/84 100 09/18/17 23:15 09/18/17 23:15 09/18/17 23:15 09/18/17 23:15 09/18/17 23:15 <Alexandra Kelley - Last Filed: 09/19/17 02:59> ED Treatment Course - LABORATORY CBC & Chemistry Diagram: 09/19/17 01:28 09/19/17 01:28 <Alexandra Kelley - Last Filed: 09/19/17 02:59> Medical Decision Making - Medical Decision Making 09/19/17 01:02 41-year-old female states that she's had some epigastric tenderness for 2 hours. She says she needs to know why her glucoses because she's lost her glucometer today. No fever or chills, vomiting or diarrhea. 09/19/17 02:19 pt now states she is concerned about and hcg ordered. Patient is anxious to leave because she has to work in the morning. She's had no nausea, vomiting or diarrhea. She's ambulating in the emergency department in no acute distress 09/19/17 02:20 Negative test and is no evidence of urinary tract infection 09/19/17 02:58 <Alexandra Kelley - Last Filed: 09/19/17 02:59> *DC/Admit/Observation/Transfer - Attestations Scribe Attestion: 09/19/17 00:52 Documentation prepared by Leonor Walker, acting as medical clinic manager for Alexandra Kelley MD <Leonor Walker - Last Filed: 09/19/17 00:51> <Alexandra Kelley - Last Filed: 09/19/17 02:59> Diagnosis at time of Disposition: Abdominal pain Qualifiers: Abdominal location: epigastric Qualified Code(s): R10.13 - Epigastric pain; R10.13 - Epigastric pain - Discharge Dispostion Disposition: HOME Condition at time of disposition: Stable - Referrals Referrals: Gregorio Li [Primary Care Provider] - - Patient Instructions Printed Discharge Instructions: DI for Abdominal Pain-Adult Additional Instructions: please follow up with your regular physician
[2017-09-19 01:34] LABS: BASOPHIL 0.4 % (0-2.0); EOSINOPHIL 1.1 % (0-4.5); MCH 29.7 pg (25.7-33.7); MCHC 34.1 g/dl (32.0-36.0); MEAN CELL VOLUME 87.1 fl (80-96); MEAN PLT VOLUME 8.6 fl (7.5-11.1); NEUTROPHILS 66.6 % (42.8-82.8); PLATELET COUNT 281 K/MM3 (134-434); RDW 14.5 % (11.6-15.6); WHITE BLOOD COUNT 9.7 K/mm3 (4.0-10.0)
[2017-09-19 02:05] LABS: ALBUMIN 3.3 g/dl (3.4-5.0); ANION GAP 10 (8-16); CALCIUM 8.8 mg/dL (8.5-10.1); CO2 24 mmol/L (21-32); CREATININE 0.9 mg/dL (0.55-1.02); GLUCOSE,RANDOM 265 mg/dL (74-106); SGOT/AST 7 U/L (15-37); SGPT/ALT 21 U/L (12-78)
[2017-09-19 02:07] LABS: ALK PHOS 79 U/L (45-117); BILIRUBIN,TOTAL 0.4 mg/dL (0.2-1.0); TOT PROT 6.6 g/dl (6.4-8.2)
[2017-09-19 02:36] LABS: URINE APPEARANCE SLCLOUDY; URINE BILIRUBIN NEGATIVE (NEGATIVE); URINE BLOOD NEGATIVE (NEGATIVE); URINE COLOR LTYELLOW; URINE GLUCOSE (UA) 3+ (NEGATIVE); URINE KETONE NEGATIVE (NEGATIVE); URINE NITRITE NEGATIVE (NEGATIVE); URINE PROTEIN NEGATIVE (NEGATIVE)
[2017-09-19 09:05] LABS: URINE LEUK ESTERASE Negative (NEGATIVE)
== END 2017-09-19 03:09 | disposition home or self-care (01) ==
LOC: JER 22:56
DX: R10.13 Epigastric pain (principal); E11.9 Type 2 diabetes mellitus without complications; Z79.4 Long term (current) use of insulin; J45.909 Unspecified asthma, uncomplicated; F17.210 Nicotine dependence, cigarettes, uncomplicated
CPT/HCPCS: 36415; 80053; 81003; 84703; 85025; 99282-25

== ENCOUNTER 2018-05-18 15:57 | Emergency (ER) | payer OTHER ==
--- NOTE | 2018-05-18 16:09 | PDOC ---
Rapid Medical Evaluation Chief Complaint: Vaginal Bleeding Time Seen by Provider: 05/18/18 16:03 Medical Evaluation: Allergies Allergy/AdvReac Type Severity Reaction Status Date / Time No Known Allergies Allergy Verified 05/18/18 16:02 Vital Signs Temp Pulse Resp BP Pulse Ox 98.8 F 107 H 19 114/75 96 05/18/18 16:02 05/18/18 16:02 05/18/18 16:02 05/18/18 16:02 05/18/18 16:02 05/18/18 16:08 I have performed a brief in-person evaluation of this patient. The patient presents with a chief complaint of: abd pain w/ irreg bleed and nausea x 2 days. H/o DM, gets monthly menses Pertinent physical exam findings:Unremarkable I have ordered the following:labs The patient will proceed to the ED for further evaluation Discharge Disposition - Diagnosis Abdominal pain Qualifiers: Abdominal location: lower abdomen, unspecified Qualified Code(s): R10.30 - Lower abdominal pain, unspecified - Referrals - Patient Instructions - Post Discharge Activity
[2018-05-18 16:26] LABS: BASO % 0.5 % (0-2.0); EOS % 1.3 % (0-4.5); HEMATOCRIT 39.9 % (32.4-45.2); HEMOGLOBIN 13.8 GM/dL (10.7-15.3); MCH 29.8 pg (25.7-33.7); MCHC 34.5 g/dl (32.0-36.0); MEAN CELL VOLUME 86.4 fl (80-96); MEAN PLT VOLUME 8.5 fl (7.5-11.1); MONO % 9.9 % (3.8-10.2); NEUT % 68.3 % (42.8-82.8); PLATELET COUNT 320 K/MM3 (134-434); RBC 4.61 M/mm3 (3.60-5.2); WHITE BLOOD COUNT 8.3 K/mm3 (4.0-10.0)
[2018-05-18 17:01] LABS: ALBUMIN 3.5 g/dl (3.4-5.0); ANION GAP 8 (8-16); BLOOD UREA NITROGEN 17 mg/dL (7-18); CHLORIDE 103 mmol/L (98-107); CO2 26 mmol/L (21-32); CREATININE 1.1 mg/dL (0.55-1.02); GLUCOSE,RANDOM 275 mg/dL (74-106); POTASSIUM 4.2 mmol/L (3.5-5.1); SGOT/AST 11 U/L (15-37); SGPT/ALT 23 U/L (12-78); SODIUM 137 mmol/L (136-145)
[2018-05-18 17:04] LABS: ALK PHOS 84 U/L (45-117); BILIRUBIN,TOTAL 0.3 mg/dL (0.2-1.0); TOT PROT 7.1 g/dl (6.4-8.2)
--- NOTE | 2018-05-18 17:06 | PDOC ---
History of Present Illness - General Chief Complaint: Vaginal Bleeding Stated Complaint: ABD PAIN, NAUSEA Time Seen by Provider: 05/18/18 16:03 History Source: Patient Exam Limitations: No Limitations - History of Present Illness Initial Comments: This is a 42 YOF with h/o IDDM, UTI/pyelonephritis, and pituitary tumor who p/w light vaginal bleeding, generalized dull lower abdominal pain and sharper 8/10 twinges of pain in the LLQ>RLQ, burning on urination, dark colored urine, and strong odor to her urine over the past 2 days. She additionally notes one episode of blood in the urine today and increased white-. She has also been having generalized weakness and fatigue, as well as worsened chronic left-sided migraines for the past week. She notes that this feels like her prior UTI/ pyelonephritis. She denies fever, chills, nausea, vomiting, rashes, or other symptoms. She is not on control and has been having unprotected sex. Past History - Past Medical History Allergies/Adverse Reactions: Allergies Allergy/AdvReac Type Severity Reaction Status Date / Time No Known Allergies Allergy Verified 05/18/18 16:02 Home Medications: Ambulatory Orders Insulin Glargine,Hum.rec.anlog [Lantus Solostar PEN (NF)] 0 units SQ HS metFORMIN HCL [Glucophage -] 500 mg PO BID 09/13/17 Erythromycin 0.5% Eye Ointment [Erythromycin 0.5% Eye Ointment -] 1 applic AD TID #1 tube 03/09/18 Insulin Glargine,Hum.rec.anlog [Lantus Solostar PEN (NF)] 0 units SQ HS Cephalexin Monohydrate [Keflex -] 500 mg PO BID #14 capsule 05/18/18 Asthma: Yes COPD: No Diabetes: Yes (IDDM) Thyroid Disease: Yes (BENIGN 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) - Family Disease History Family Disease History: Diabetes: Mother - Immunization History Immunization Up to Date: No - Suicide/Smoking/Psychosocial Hx Smoking Status: Yes Smoking History: Current every day smoker Have you smoked in the past 12 months: Yes Number of Cigarettes Smoked Daily: 10 Information on smoking cessation initiated: No 'Breaking Loose' booklet given: 09/13/17 Hx Alcohol Use: No Drug/Substance Use Hx: No Substance Use Type: None Abd/GI Specific PMHX - Complaint Specific PMHX Colitis: No Diverticulitis: No Gall Bladder Disease: No GERD: No Hepatitis: No Irritable Bowel Synd (IBS): No Pancreatitis: No GI Ulcer Disease: No Review of Systems - Review of Systems Able to Perform ROS?: Yes Constitutional: No: Chills, Fever, Unexplained wgt Loss HEENTM: No: Nose Congestion, Throat Pain Respiratory: No: Cough, Shortness of Breath Cardiac (ROS): Yes: Lightheadedness. No: Chest Pain, Palpitations ABD/GI: Yes: Other (lower abdominal pain). No: Constipated, Diarrhea, Nausea, Vomiting : Yes: Burning, Dysuria, Hematuria, Other (vaginal bleeding, vaginal discharge ) Musculoskeletal: No: Back Pain, Neck Pain Integumentary: No: Bruising, Rash Neurological: Yes: Headache. No: Numbness, Tingling, Weakness, Dizziness Endocrine: No: Unexplained Weight Gain, Unexplained Weight Loss *Physical Exam - Vital Signs Last Vital Signs Temp Pulse Resp BP Pulse Ox 98.8 F 107 H 19 114/75 96 05/18/18 16:02 05/18/18 16:02 05/18/18 16:02 05/18/18 16:02 05/18/18 16:02 - Physical Exam General Appearance: Yes: Nourished, Appropriately Dressed, Obese, Other ( comfortable appearing, nontoxic appearing adult female in no distress, answering questions appropriately). No: Apparent Distress HEENT: positive: EOMI, Normal Voice, Hearing Grossly Normal. negative: Scleral Icterus (R), Scleral Icterus (L), Nasal Congestion Neck: positive: Trachea midline, Supple. negative: Tender, Rigid Respiratory/Chest: positive: Lungs Clear, Normal Breath Sounds. negative: Respiratory Distress, Crackles, Rhonchi, Stridor, Wheezing Cardiovascular: positive: Regular Rhythm, Regular Rate. negative: Murmur Female Pelvic Exam: positive: normal external exam, cervical os closed, normal adnexa, discharge (small amount of thick white discharge). negative: CMT, lesions, vaginal bleeding Gastrointestinal/Abdominal: positive: Normal Bowel Sounds, Soft. negative: Tender, Organomegaly, Pulsatile Mass, Guarding Musculoskeletal: positive: Normal Inspection. negative: CVA Tenderness, Decreased Range of Motion, Vertebral Tenderness Extremity: positive: Normal Capillary Refill, Normal Inspection, Normal Range of Motion. negative: Tender, Cyanosis Integumentary: positive: Normal Color, Dry, Warm. negative: Erythema, Rash, Bruising Neurologic: positive: special effects technician II-XII NML intact (grossly), Fully Oriented, Alert, Normal Mood/Affect, Normal Response, Motor Strength 5/5. negative: EOM Palsy, Facial Droop, Confused, Disoriented ED Treatment Course - LABORATORY CBC & Chemistry Diagram: 05/18/18 16:17 05/18/18 16:17 - ADDITIONAL ORDERS Additional order review: Laboratory Results 05/18/18 16:17 WBC 8.3 RBC 4.61 Hgb 13.8 Hct 39.9 MCV 86.4 MCH 29.8 MCHC 34.5 RDW 14.0 Plt Count 320 MPV 8.5 Absolute Neuts (auto) 5.6 Neutrophils % 68.3 Lymphocytes % 20.0 Monocytes % 9.9 Eosinophils % 1.3 Basophils % 0.5 Nucleated RBC % 0 05/18/18 16:17 RBC 4.61 MCV 86.4 MCHC 34.5 RDW 14.0 MPV 8.5 Neutrophils % 68.3 Lymphocytes % 20.0 Monocytes % 9.9 Eosinophils % 1.3 Basophils % 0.5 Medical Decision Making - Medical Decision Making Adult female Pt p/w painful urination. Initial Vital Signs Temp Pulse Resp BP Pulse Ox 98.8 F 107 H 19 114/75 96 05/18/18 16:02 05/18/18 16:02 05/18/18 16:02 05/18/18 16:02 05/18/18 16:02 Exam: Pelvic with small amount of thick white discharge DDX IBNLT: UTI, pyelonephritis, cervicitis, PID, TOA, other STD/STI, vaginal lesion, vulvuvaginal candidiasis, interstitial cystitis, neurogenic bladder, renal colic, obstructive uropathy, ectopic, ovarian torsion, ovarian cyst, endometritis, malignancy, hernia, appendicitis, proctitis, sigmoid diverticulitis wwo abscess or perforation, endometriosis, primary dysmenorrhea, etc. W/U ordered: CBCD CMP UA UCx hCG GC culture TX ordered: Reglan Laboratory Tests 05/18/18 05/18/18 05/18/18 16:17 16:17 16:17 WBC 8.3 RBC 4.61 Hgb 13.8 Hct 39.9 MCV 86.4 MCH 29.8 MCHC 34.5 RDW 14.0 Plt Count 320 MPV 8.5 Absolute Neuts (auto) 5.6 Neutrophils % 68.3 Lymphocytes % 20.0 Monocytes % 9.9 Eosinophils % 1.3 Basophils % 0.5 Nucleated RBC % 0 Sodium 137 Potassium 4.2 Chloride 103 Carbon Dioxide 26 Anion Gap 8 BUN 17 Creatinine 1.1 H Creat Clearance w eGFR 53.96 Random Glucose 275 H Calcium 9.0 Total Bilirubin 0.3 AST 11 L ALT 23 Alkaline Phosphatase 84 Total Protein 7.1 Albumin 3.5 Urine Color Dkyellow Urine Appearance Slcloudy Urine pH 5.0 Ur Specific [place] 1.028 Urine Protein Negative Urine Glucose (UA) 3+ H Urine Ketones Trace H Urine Blood Negative Urine Nitrite Negative Urine Bilirubin Negative Urine Urobilinogen 4.0 e.u/dl H Ur Leukocyte Esterase Trace Urine WBC (Auto) 17 Urine RBC (Auto) 3 Ur Epithelial Cells Rare Urine Mucus Rare Urine HCG, Qual Negative Reassessment: patient states much improved, repeat exam benign. Dose of Keflex given here in the ED. Vital Signs Temperature 98.2 F 05/18/18 19:32 Pulse Rate 88 05/18/18 19:32 Respiratory Rate 17 05/18/18 19:32 Blood Pressure 118/74 05/18/18 19:32 O2 Sat by Pulse Oximetry (%) 99 05/18/18 19:32 DISCHARGE The Pt is appropriate for discharge with close outpatient follow up. Workup is not concerning for emergency-level pathology at this time. The Pt is comfortable with this plan and will follow up with her PCP in 1-3 days. E-Rx sent to patient's pharmacy for antibiotic course. She will take OTC pain medications, pyridium, etc. for pain. Specific return precautions are discussed and she will come back to the ER if necessary. *DC/Admit/Observation/Transfer Diagnosis at time of Disposition: Dysuria, Vaginal bleeding UTI (urinary tract infection) Qualifiers: Urinary tract infection type: acute cystitis Hematuria presence: without hematuria Qualified Code(s): N30.00 - Acute cystitis without hematuria - Discharge Dispostion Disposition: HOME Condition at time of disposition: Good Decision to Admit order: No - Prescriptions Prescriptions: Cephalexin Monohydrate [Keflex -] 500 mg PO BID #14 capsule - Referrals Referrals: Gregorio Li [Primary Care Provider] - - Patient Instructions Additional Instructions: You were seen in the ER for vaginal bleeding, abdominal pain, painful urination , and strange colors/smells to your urine. We did blood and urine labs and you have a urinary tract infection, but there were no other abnormalities. We sent samples to test for diseases, and you will be called within a few days if there are any abnormal results. After our assessment, we do not believe you are having a medical emergency at this time, and we believe you are safe to go home. 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 Please take over the counter pain medications for pain, following the instructions on the medication label. For painful urination, please take pyridium (Azo) which you can get [id number] at the pharmacy. This will turn your urine orange and it is nothing to worry about while you are taking this medication. Follow up with your primary doctor in 1-3 days. Call their clinic [facility], tell them you were seen in the ER, and tell them you need an appointment. Please come back to the ER at any time, 24 hours a day, for any new or worsening symptoms, like worsened pain, increased or foul-smelling discharge, fever, testicular/scrotal pain or swelling, or other symptoms. If you are having severe or life threatening symptoms, or symptoms that make it unsafe to drive or have someone drive you, please call 911. - Post Discharge Activity
[2018-05-18 17:09] LABS: HCG,QUALITATIVE URINE NEGATIVE
--- NOTE | 2018-05-18 17:24 | PDOC ---
Attending Attestation - Resident Resident Name: ReinaldoSunita - ED Attending Attestation I have performed the following: I have examined & evaluated the patient, The case was reviewed & discussed with the resident, I agree w/resident's findings & plan, Exceptions are as noted - HPI HPI: 05/18/18 17:23 42y F hx of IDDM, pituitary gland tumor UTIs, presents with dysuria, hematuria, lower abd pain, including intermittent LLQ pain, associated wiht generalized weakness, fatigue, denies f/c, n/v. pt also also endorses some L sided headache. pt denies any visoin changes, numbness/tingling/weakness, n/v. on exam pt well appearing in no distress abd soft nontender, no cva tenderness neuro: normal speech, no facial assymetriy, normal gait, strength symmetric in upper/lower extermities, sensation intact symmetrically suspect psosible UTI will obtian UA - Physicial Exam PE: 05/19/18 03:10 see above - Medical Decision Making labs reviewed UA suggestive of UTI pt feeling improved with reglan for here headache will dc wiht mpd fu retur nprecuations were discussed I discussed the physical exam findings, ancillary test results and final diagnoses with the patient. I answered all of the patient's questions. The patient was satisfied with the care received and felt comfortable with the discharge plan and treatment plan. The patient will call their primary care physician within 24 hours to arrange follow-up and will return to the Emergency Department with any new, persistent or worsening symptoms.
[2018-05-18] MEDS ORDERED: METOCLOPRAMIDE HCL 10 MG TABLET (FP) PO ONE ×2 (17:47→18:13)
[2018-05-18 19:06] LABS: URINE APPEARANCE SLCLOUDY; URINE BILIRUBIN NEGATIVE (<2.0 mg/dL); URINE COLOR DKYELLOW; URINE GLUCOSE (UA) 3+ (NEGATIVE); URINE KETONE TRACE (NEGATIVE); URINE LEUK ESTERASE TRACE (NEGATIVE); URINE NITRITE NEGATIVE (NEGATIVE); URINE PROTEIN NEGATIVE (NEGATIVE); URINE UROBILINOGEN 4.0 E.U/dl mg/dL (0.2-1.0)
[2018-05-18 19:14] LABS: EPI CELLS RARE /HPF (FEW); URINE MUCUS RARE
[2018-05-18] MEDS ORDERED: CEPHALEXIN MONOHYDRATE 500 MG CAPSULE (UD) PO ONE (19:21)
--- NOTE | 2018-05-18 19:28 | PDOC ---
*Physical Exam - Vital Signs Last Vital Signs Temp Pulse Resp BP Pulse Ox 98.8 F 107 H 19 114/75 96 05/18/18 16:02 05/18/18 16:02 05/18/18 16:02 05/18/18 16:02 05/18/18 16:02 - Physical Exam Comments: 05/18/18 19:24 GENERAL: Awake, alert, and fully oriented, in no acute distress HEAD: No signs of trauma, normocephalic, atraumatic EYES: PERRLA, EOMI, sclera anicteric, conjunctiva clear ENT: Auricles normal inspection, hearing grossly normal, nares patent, oropharynx clear without exudates. Moist mucosa EXTREMITIES: Normal inspection, Normal range of motion, no edema. No clubbing or cyanosis. NEUROLOGICAL: Cranial nerves II through XII grossly intact. Normal speech, normal gait, no focal sensorimotor deficits SKIN: Warm, Dry, normal turgor, no rashes or lesions noted. ED Treatment Course - LABORATORY CBC & Chemistry Diagram: 05/18/18 16:17 05/18/18 16:17 - ADDITIONAL ORDERS Additional order review: Laboratory Results 05/18/18 05/18/18 16:17 16:17 Sodium 137 Potassium 4.2 Chloride 103 Carbon Dioxide 26 Anion Gap 8 BUN 17 Creatinine 1.1 H Creat Clearance w eGFR 53.96 Random Glucose 275 H Calcium 9.0 Total Bilirubin 0.3 AST 11 L ALT 23 Alkaline Phosphatase 84 Total Protein 7.1 Albumin 3.5 Urine Color Dkyellow Urine Appearance Slcloudy Urine pH 5.0 Ur Specific [place] 1.028 Urine Protein Negative Urine Glucose (UA) 3+ H Urine Ketones Trace H Urine Blood Negative Urine Nitrite Negative Urine Bilirubin Negative Urine Urobilinogen 4.0 e.u/dl H Ur Leukocyte Esterase Trace Urine WBC (Auto) 17 Urine RBC (Auto) 3 Ur Epithelial Cells Rare Urine Mucus Rare Urine HCG, Qual Negative 05/18/18 16:17 RBC 4.61 MCV 86.4 MCHC 34.5 RDW 14.0 MPV 8.5 Neutrophils % 68.3 Lymphocytes % 20.0 Monocytes % 9.9 Eosinophils % 1.3 Basophils % 0.5 - Medications Given in the ED: ED Medications Discontinued Medications Generic Name Dose Route Start Last Admin Trade Name Freq PRN Reason Stop Dose Admin Metoclopramide HCl 10 mg 05/18/18 17:47 05/18/18 18:30 Reglan - PO 05/18/18 17:48 10 mg ONCE ONE Administration Medical Decision Making - Medical Decision Making 05/18/18 19:[address] Vanegas. Patient is 42F with history of T1DM here today complaining of UTI symptoms. Pending labs. 05/18/18 19:27 Laboratory Tests 05/18/18 05/18/18 05/18/18 16:17 16:17 16:17 WBC 8.3 Hgb 13.8 Plt Count 320 BUN 17 Creatinine 1.1 H Random Glucose 275 H Urine Glucose (UA) 3+ H Urine WBC (Auto) 17 Urine HCG, Qual Negative CBC normal. CMP reassuring. UA shows evidence of infection. Will discharge with keflex. *DC/Admit/Observation/Transfer Diagnosis at time of Disposition: Dysuria, Vaginal bleeding, UTI (urinary tract infection) - Discharge Dispostion Disposition: HOME Condition at time of disposition: Good Decision to Admit order: No - Prescriptions Prescriptions: Cephalexin Monohydrate [Keflex -] 500 mg PO BID #14 capsule - Referrals Referrals: Gregorio Li [Primary Care Provider] - - Patient Instructions Additional Instructions: You were seen in the ER for vaginal bleeding, abdominal pain, painful urination , and strange colors/smells to your urine. We did blood and urine labs and you have a urinary tract infection, but there were no other abnormalities. We sent samples to test for diseases, and you will be called within a few days if there are any abnormal results. After our assessment, we do not believe you are having a medical emergency at this time, and we believe you are safe to go home. supervisor hand silvering and take your prescriptions that we are sending electronically to your pharmacy. Please take over the counter pain medications for pain, following the instructions on the medication label. For painful urination, please take pyridium (Azo) which you can get [id number] at the pharmacy. This will turn your urine orange and it is nothing to worry about while you are taking this medication. Follow up with your primary doctor in 1-3 days. Call their clinic [facility], tell them you were seen in the ER, and tell them you need an appointment. Please come back to the ER at any time, 24 hours a day, for any new or worsening symptoms, like worsened pain, increased or foul-smelling discharge, fever, testicular/scrotal pain or swelling, or other symptoms. If you are having severe or life threatening symptoms, or symptoms that make it unsafe to drive or have someone drive you, please call 911. - Post Discharge Activity
[2018-05-18] MEDS ORDERED: CEPHALEXIN MONOHYDRATE 500 MG CAPSULE (UD) ONE (19:37)
[2018-05-18 19:54] VITALS: BP 118/74; PULSE 88; TEMP 98.2
== END 2018-05-18 19:46 | disposition home or self-care (01) ==
LOC: JER 15:57
DX: N39.0 Urinary tract infection, site not specified (principal); R51 Headache; N93.8 Other specified abnormal uterine and vaginal bleeding; E10.9 Type 1 diabetes mellitus without complications; Z79.4 Long term (current) use of insulin; J45.909 Unspecified asthma, uncomplicated; Z86.018 Personal history of other benign neoplasm
CPT/HCPCS: 36415; 80053; 81003; 81015; 84703; 85025; 87081; 87110; 87491; 87591; 99281-25

== ENCOUNTER 2018-06-23 16:05 | Emergency (ER) | payer OTHER ==
[2018-06-23 16:09] VITALS: BMI 32.7
--- NOTE | 2018-06-23 16:29 | PDOC ---
History of Present Illness - General Chief Complaint: Headache Stated Complaint: HEADACHE - History of Present Illness Initial Comments: 42 year old female with PMH of IDDM, hx of UTIs/pyelonephritis, and pituitary tumor (on cerbegoline with chronic headaches) presenting with acute on subacute worsening headaches and new nausea with global weakness. Her usual headaches are intermittent, sharp, left sided, occasionally radiating down the back of her head. Her current headaches are similar in quality but slightly more intense at 7/10 in severity. Furthermore, she has had much worsening nausea and hasn't been able to eat much for the past three days and admits to low liquid intake as well. Today she was concerned when she stood up from her chair at work and began to feel weak and lightheaded. Denies any sonophobia or photophobia. Denies falls or syncope. She is also admitting to central, sharp, 5 /10, intermittent, radiating down arms bilaterally chest pain that is "worse when I'm mad". She hasn't taken anything for her headaches or chest pain because "I don't like medications". Her neurologist, Dr. Kramer, prescribed her a sublingual medication that she hasn't filled the script for yet. She also got an MRI for her worsening headaches three days prior, approximately one week after a concerning EMG study. Denies any fevers, chills, vomiting, diarrhea, constipation, FND, ataxia, numbness, tremors, visual symptoms, or other symptoms. 06/23/18 16:30 Past History - Past Medical History Allergies/Adverse Reactions: Allergies Allergy/AdvReac Type Severity Reaction Status Date / Time No Known Allergies Allergy Verified 06/23/18 16:09 Home Medications: Ambulatory Orders Insulin Glargine,Hum.rec.anlog [Lantus Solostar PEN (NF)] 0 units SQ HS metFORMIN HCL [Glucophage -] 500 mg PO BID 09/13/17 Erythromycin 0.5% Eye Ointment [Erythromycin 0.5% Eye Ointment -] 1 applic AD TID #1 tube 03/09/18 Insulin Glargine,Hum.rec.anlog [Lantus Solostar PEN (NF)] 0 units SQ HS Cephalexin Monohydrate [Keflex -] 500 mg PO BID #14 capsule 05/18/18 Asthma: Yes COPD: No Diabetes: Yes (IDDM) Thyroid Disease: Yes (BENIGN 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) - Family Disease History Family Disease History: Diabetes: Mother - Immunization History Immunization Up to Date: No - Suicide/Smoking/Psychosocial Hx Smoking Status: Yes Smoking History: Current every day smoker Have you smoked in the past 12 months: Yes Number of Cigarettes Smoked Daily: 10 Information on smoking cessation initiated: No 'Breaking Loose' booklet given: 09/13/17 Hx Alcohol Use: No Drug/Substance Use Hx: No Substance Use Type: None Review of Systems - Review of Systems Constitutional: Yes: Loss of Appetite, Weakness. No: Chills, Diaphoresis, Fever HEENTM: No: Eye Pain, Blurred Vision, Recent change in vision, Double Vision Respiratory: No: Cough, Orthopnea, Shortness of Breath, SOB with Exertion, Wheezing Cardiac (ROS): Yes: Chest Pain, Lightheadedness. No: Edema, Palpitations, Syncope, Chest Tightness ABD/GI: Yes: Nausea, Poor Appetite. No: Diarrhea : No: Burning, Dysuria, Discharge, Hematuria Musculoskeletal: Yes: Muscle Weakness. No: Back Pain, Joint Swelling Integumentary: No: Bruising, Change in Color, Dryness, Erythema, Flushing, Rash Neurological: Yes: Headache, Weakness, Dizziness. No: Paresthesia, Seizure, Tingling, Unsteady Gait, Ataxia Hematologic/Lymphatic: No: Anemia, Bleeding Diathesis *Physical Exam - Vital Signs Last Vital Signs Temp Pulse Resp BP Pulse Ox 98.4 F 91 H 18 120/71 99 06/23/18 16:07 06/23/18 16:07 06/23/18 16:07 06/23/18 16:07 06/23/18 16:07 - Physical Exam General Appearance: Yes: Nourished, Appropriately Dressed. No: Apparent Distress HEENT: positive: EOMI, KENDRICK. negative: Normal ENT Inspection Neck: positive: Trachea midline, Normal Thyroid, Supple. negative: Tender, Rigid Respiratory/Chest: positive: Lungs Clear, Normal Breath Sounds. negative: Chest Tender, Respiratory Distress, Accessory Muscle Use Cardiovascular: positive: Regular Rhythm, Regular Rate Gastrointestinal/Abdominal: positive: Normal Bowel Sounds, Flat, Soft. negative : Tender Musculoskeletal: positive: Normal Inspection. negative: CVA Tenderness Extremity: positive: Normal Capillary Refill, Normal Inspection, Normal Range of Motion. negative: Tender Integumentary: positive: Normal Color, Dry, Warm Neurologic: positive: educational program director II-XII NML intact, Fully Oriented, Alert, Normal Mood/ Affect, Normal Response, Motor Strength 5/5, Responsive, Finger to Nose. negative: Abnormal Cranial NS, EOM Palsy, Facial Droop, Numbness, Sensory Deficit, Confused, Disoriented, Depressed Affect ED Treatment Course - LABORATORY CBC & Chemistry Diagram: 06/23/18 17:00 06/23/18 17:00 Medical Decision Making - Medical Decision Making 42 year old female with PMH of pituitary adenoma presenting with acute on chronic headache and nausea. CT head negative for bleed or ischemia, labs WNL, patient's headache responded to Toradol 15 V x2, Reglan PO, and IV NS. Headache unconcerning given negative CT and corroboration that this is the same quality as all of her previous headaches but slightly more severe with slightly worse nausea. Chest pain also low rish with normal EKG and negative Troponin. Will DC with follow up instructions with Dr. Kramer and return precautions to the ED. Her MRI was uploaded into our system. 06/23/18 20:36 *DC/Admit/Observation/Transfer Diagnosis at time of Disposition: Headache Qualifiers: Headache type: unspecified Headache chronicity pattern: acute headache Intractability: not intractable Qualified Code(s): R51 - Headache - Discharge Dispostion Disposition: HOME Condition at time of disposition: Improved Decision to Admit order: No - Referrals Referrals: Rajwinder Roy MD [Staff Physician] - - Patient Instructions Printed Discharge Instructions: DI for Headache Additional Instructions: Your labs and head CT were negative, please use Tylenol and Motrin for your headache. Please follow up with Dr. Roy within a week. Please return to the ED if you have new or worsening symptoms. - Post Discharge Activity
[2018-06-23] MEDS ORDERED: ONDANSETRON 4 MG/2 ML VIAL IVPUSH ONE (16:44)
[2018-06-23] MEDS ORDERED: SODIUM CHLORIDE 0.9% 500 ML INFUS.BAG IV ONE (16:44)
[2018-06-23] MEDS ORDERED: ACETAMINOPHEN 1000 MG/100 ML VIAL (NON FORMULARY) IVPB ONE (16:45)
[2018-06-23] MEDS ORDERED: ACETAMINOPHEN INJECTION 100 ML IVPB ONE (17:04)
[2018-06-23] MEDS ORDERED: ONDANSETRON 4 MG/2 ML VIAL ONE (17:04)
[2018-06-23 17:09] LABS: BASO % 0.5 % (0-2.0); EOS % 1.4 % (0-4.5); HEMATOCRIT 37.2 % (32.4-45.2); HEMOGLOBIN 12.7 GM/dL (10.7-15.3); LYMPH % 21.7 % (8-40); MCH 28.6 pg (25.7-33.7); MEAN PLT VOLUME 8.4 fl (7.5-11.1); MONO % 9.4 % (3.8-10.2); PLATELET COUNT 288 K/MM3 (134-434); RBC 4.43 M/mm3 (3.60-5.2); RDW 13.5 % (11.6-15.6); WHITE BLOOD COUNT 7.7 K/mm3 (4.0-10.0)
[2018-06-23 17:20] LABS: INR 0.97 (0.82-1.09)
[2018-06-23 17:46] LABS: ALBUMIN 3.5 g/dl (3.4-5.0); ANION GAP 8 (8-16); BILIRUBIN,TOTAL 0.3 mg/dL (0.2-1.0); BLOOD UREA NITROGEN 11 mg/dL (7-18); CHLORIDE 107 mmol/L (98-107); CO2 25 mmol/L (21-32); CREATININE 0.8 mg/dL (0.55-1.02); GLUCOSE,RANDOM 136 mg/dL (74-106); SGOT/AST 12 U/L (15-37); SGPT/ALT 16 U/L (12-78); SODIUM 140 mmol/L (136-145); TOT PROT 6.8 g/dl (6.4-8.2)
[2018-06-23 17:47] LABS: ALK PHOS 77 U/L (45-117)
--- NOTE | 2018-06-23 17:49 | PDOC ---
Attending Attestation - Resident Resident Name: Paty Mendiola - ED Attending Attestation I have performed the following: I have examined & evaluated the patient, The case was reviewed & discussed with the resident, I agree w/resident's findings & plan, Exceptions are as noted - HPI HPI: 06/23/18 18:12 The patient is a 42-year-old female with a past medical history of IDDM, HTN pituitary gland tumor, chronic headache and nausea and UTIs presents to the emergency department with worsening headache. The patient reports a baseline of chronic intermittent headache, usually located on the L. side with occasional radiation to the posterior head, sharp in character, whichs been progressively worsening for the past month. The patient states the headache is accompanied with nausea and chest pain. The patient reports intermittent midsternal chest pain that radiates bilaterally down the upper extremities. The patient reports shes been having difficulty intaking secondary to nausea, states shes been compensating on a low liquid diet. The patient states she became concerned when she experienced an episode of lightheadedness and weakness when she was trying to ambulate out of a chair. The patient reports following up with Dr. Kramer, who prescribed medication, states she was unable to pick it up. The patient states she had an EMG done a week prior, which was concerned to Dr. Kramer, followed by an MRI 3 days prior , awaiting results. Denies fever, chills, or a cough. Denies shortness of breath orthopnea. Denies diarrhea or constipation. Denies vomiting. Denies dysuria, hematuria, frequency or urgency to urinate. Denies loss of conscious or unsteady gait. Allergies: NKDA Social history: Current everyday smoker. No alcohol or recreational drug use reported Surgical history: None reported PCP: Gregorio Bobo Neurologist: Dr. Meadows. - Physicial Exam PE: 06/24/18 00:08 agree with resident exam on exam pt in no distress neuro grossly intact - Medical Decision Making 06/23/18 20:[address] negative pt feeling improved pt dc with pm dfu Heart Score/ECG Review - ECG Impressions Comment:: 06/24/18 00:09 Twelve-lead EKG was performed and reviewed by me. There is normal sinus rhythm with a normal rate. Rate of 77 The axis is normal. The intervals are normal. There is normal R wave progression There are no ST or T wave abnormalities. Impression: Normal twelve-lead EKG
[2018-06-23] MEDS ORDERED: KETOROLAC TROMETHAMINE 15 MG/ML VIAL IVPUSH ONE ×2 (19:46→20:20)
[2018-06-23] MEDS ORDERED: METOCLOPRAMIDE HCL 10 MG TABLET (FP) PO ONE (19:47)
[2018-06-23] MEDS ORDERED: KETOROLAC TROMETHAMINE 15 MG/ML VIAL ONE ×2 (20:07→20:33)
[2018-06-23] MEDS ORDERED: METOCLOPRAMIDE HCL INJECTION 10 MG/2 ML VIAL ONE (20:07)
[2018-06-23 20:37] VITALS: BP 118/68; PULSE 86; TEMP 98.1
--- NOTE | 2018-06-25 10:28 | EKG ---
Test Reason : Blood Pressure : / mmHG Vent. Rate : 077 BPM Atrial Rate : 077 BPM P-R Int : 144 ms QRS Dur : 090 ms QT Int : 388 ms P-R-T Axes : 038 052 040 degrees QTc Int : 439 ms NORMAL SINUS RHYTHM NORMAL ECG WHEN COMPARED WITH ECG OF 29-APR-2014 17:27, NO SIGNIFICANT CHANGE WAS FOUND Confirmed by JUSTYNA CARVALHO MD ([id number]) on 06/25/2018 10:27:49 AM Referred By: Confirmed By:JUSTYNA CARVALHO MD
== END 2018-06-23 20:47 | disposition home or self-care (01) ==
LOC: JER 16:05
PROC: 3E033NZ Introduction of Analgesics, Hypnotics, Sedatives into Peripheral Vein, Percutaneous Approach (ICD-10-PCS; principal; 2018-06-23)
PROC: 3E0333Z Introduction of Anti-inflammatory into Peripheral Vein, Percutaneous Approach (ICD-10-PCS; 2018-06-23)
PROC: 3E0333Z Introduction of Anti-inflammatory into Peripheral Vein, Percutaneous Approach (ICD-10-PCS; 2018-06-23)
PROC: 3E033GC Introduction of Other Therapeutic Substance into Peripheral Vein, Percutaneous Approach (ICD-10-PCS; 2018-06-23)
DX: R51 Headache (principal); F17.210 Nicotine dependence, cigarettes, uncomplicated
CPT/HCPCS: 36415; 70450-TC; 80053; 84484; 84703; 85025; 85610; 93005; 93010; 96374; 96375; 99283-25; J0131

== ENCOUNTER 2018-08-01 18:47 | Emergency (ER) | payer OTHER ==
[2018-08-01 18:53] VITALS: BP 128/76; PULSE 106; TEMP 99.1; BMI 29.7
[2018-08-01] MEDS ORDERED: IBUPROFEN 400 MG TABLET (FP) PO ONE ×2 (19:36)
--- NOTE | 2018-08-01 19:41 | PDOC ---
History of Present Illness - General Chief Complaint: Toothache Stated Complaint: FACIAL PAIN Time Seen by Provider: 08/01/18 19:33 History Source: Patient Exam Limitations: Clinical Condition - History of Present Illness Initial Comments: 08/01/18 19:36 Patient with no sig Past medical history presenting with complain of 2 days history of pain to lower left tooth. Patient reported history of root canal in that tooth few years ago. Patient has not seen a dentist in over 2 years Timing/Duration: other (2 days) Past History - Past Medical History Allergies/Adverse Reactions: Allergies Allergy/AdvReac Type Severity Reaction Status Date / Time No Known Allergies Allergy Verified 08/01/18 18:53 Home Medications: Ambulatory Orders Insulin Glargine,Hum.rec.anlog [Lantus Solostar PEN (NF)] 0 units SQ HS metFORMIN HCL [Glucophage -] 500 mg PO BID 09/13/17 Insulin Glargine,Hum.rec.anlog [Lantus Solostar PEN (NF)] 0 units SQ HS Amox-Tr/K Cl [Augmentin - 875Mg Tablet] 1 tab PO BID #14 tablet 08/01/18 Ibuprofen 800 mg PO Q8H PRN #12 tablet 08/01/18 Asthma: Yes COPD: No Diabetes: Yes (IDDM) Thyroid Disease: Yes (BENIGN 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) - Family Disease History Family Disease History: Diabetes: Mother - Immunization History Immunization Up to Date: No - Suicide/Smoking/Psychosocial Hx Smoking Status: Yes Smoking History: Current every day smoker Have you smoked in the past 12 months: Yes Number of Cigarettes Smoked Daily: 10 Information on smoking cessation initiated: No 'Breaking Loose' booklet given: 09/13/17 Hx Alcohol Use: No Drug/Substance Use Hx: No Substance Use Type: None Review of Systems - Review of Systems Able to Perform ROS?: Yes Is the patient limited Arabic proficient: No Constitutional: No: Chills, Diaphoresis, Fever, Loss of Appetite, Malaise, Night Sweats, Weakness, Weight Stable, Unintentional Wgt. Loss, Unexplained wgt Loss, Other HEENTM: Yes: Dental Problems (left lower pain). No: Eye Pain, Blurred Vision, Tearing, Recent change in vision, Double Vision, Cataracts, Ear Pain, Ocular Prothesis, Ear Discharge, Nose Pain, Nose Congestion, Tinnitus, Nose Bleeding, Hearing Loss, Throat Pain, Throat Swelling, Mouth Pain, Difficulty Swallowing, Mouth Swelling, Other Respiratory: No: Cough, Orthopnea, Shortness of Breath, SOB with Exertion, SOB at Rest, Stridor, Wheezing, Productive cough, Hemoptysis, Other Cardiac (ROS): No: Chest Pain, Edema, Irregular Heart Rate, Lightheadedness, Palpitations, Syncope, Chest Tightness, Other ABD/GI: No: Abdominal Distended, Abd. Pain w/ defecation, Blood Streaked Bowels , Constipated, Diarrhea, Difficulty Swallowing, Nausea, Poor Appetite, Poor Fluid Intake, Rectal Bleeding, Vomiting, Indigestion, Abdominal cramping, Tarry Stools, Other All Other Systems: Reviewed and Negative *Physical Exam - Vital Signs Last Vital Signs Temp Pulse Resp BP Pulse Ox 99.1 F 106 H 18 128/76 99 08/01/18 18:49 08/01/18 18:49 08/01/18 18:49 08/01/18 18:49 08/01/18 18:49 - Physical Exam Comments: 08/01/18 19:38 GENERAL: Well developed, well nourished. Awake and alert. No acute distress. HEENT: Mild swelling to left lower premolar. Moderate tenderness to left lower second premolar Normocephalic, atraumatic. PERRLA, EOMI. No conjunctival pallor. Sclera are non- icteric. Moist mucous membranes. Oropharynx is clear. NECK: Supple. Full ROM. No JVD. Carotid pulses 2+ and symmetric, without bruits. No thyromegaly. No lymphadenopathy. CARDIOVASCULAR: Regular rate and rhythm. No murmurs, rubs, or gallops. Distal pulses are 2+ and symmetric. PULMONARY: No evidence of respiratory distress. Lungs clear to auscultation bilaterally. No wheezing, rales or rhonchi. ABDOMINAL: Soft. Non-tender. Non-distended. No rebound or guarding. No organomegaly. Normoactive bowel sounds. MUSCULOSKELETAL Normal range of motion at all joints. No bony deformities or tenderness. No CVA tenderness. EXTREMITIES: No cyanosis. No clubbing. No edema. No calf tenderness. SKIN: Warm and dry. Normal capillary refill. No rashes. No jaundice. NEUROLOGICAL: Alert, awake, appropriate. Cranial nerves 2-12 intact. No deficits to light touch and temperature in face, upper extremities and lower extremities. No motor deficits in the in face, upper extremities and lower extremities. Normoreflexic in the upper and lower extremities. Normal speech. Toes are down- going bilaterally. Gait is normal without ataxia. PSYCHIATRIC: Cooperative. Good eye contact. Appropriate mood and affect. General Appearance: Yes: Nourished, Appropriately Dressed, Mild Distress Medical Decision Making - Medical Decision Making 08/01/18 19:42 Patient with no sig Past medical history present with complain of 2 days history of left lower tooth pain. Exams significant for tenderness to left lower premolar with mild swelling to area. Patient be treated on Augmentin and ibuprofen would dental follow-up *DC/Admit/Observation/Transfer Diagnosis at time of Disposition: Toothache, Periodontal disease - Discharge Dispostion Disposition: HOME Condition at time of disposition: Stable Decision to Admit order: No - Prescriptions Prescriptions: Amox-Tr/K Cl [Augmentin - 875Mg Tablet] 1 tab PO BID #14 tablet Ibuprofen 800 mg PO Q8H PRN #12 tablet PRN Reason: tooth pain - Referrals Referrals: Gregorio Li [Primary Care Provider] - Subhash Roque DDS [Staff Physician] - - Patient Instructions Printed Discharge Instructions: DI for Dental Pain, DI for Tooth Decay Additional Instructions: Take medications as prescribed. Follow-up with dentist as soon as possible - Post Discharge Activity
== END 2018-08-01 19:59 | disposition home or self-care (01) ==
LOC: JERFT 18:47
DX: K08.89 Other specified disorders of teeth and supporting structures (principal); K05.5 Other periodontal diseases; E11.9 Type 2 diabetes mellitus without complications; Z79.4 Long term (current) use of insulin; J45.909 Unspecified asthma, uncomplicated; Z86.018 Personal history of other benign neoplasm
CPT/HCPCS: 99281-25

== ENCOUNTER 2018-11-10 22:51 | Emergency (ER) | payer OTHER ==
[2018-11-10 23:02] VITALS: TEMP 98.4
[2018-11-10] MEDS ORDERED: ACETAMINOPHEN 1000 MG/100 ML VIAL (NON FORMULARY) IVPB ONE (23:16)
[2018-11-10] MEDS ORDERED: ACETAMINOPHEN INJECTION 100 ML IVPB ONE (23:28)
--- NOTE | 2018-11-10 23:50 | PDOC ---
*Physical Exam - Vital Signs Last Vital Signs Temp Pulse Resp BP Pulse Ox 98.4 F 93 H 18 141/88 98 11/10/18 22:56 11/10/18 22:56 11/10/18 22:56 11/10/18 22:56 11/10/18 22:56 ED Treatment Course - LABORATORY CBC & Chemistry Diagram: 11/10/18 22:43 11/10/18 22:43 Medical Decision Making - Medical Decision Making 11/10/18 23:46 42 yo F presenting to the ER with heavy vaginal bleeding Last period was approximately 1 month Pt reports sudden onset of heavy vaginal bleeding and severe lower abdominal pain Pelvic examination per MARIA D Graham Labs - Laboratory Tests 11/10/18 11/10/18 22:43 22:43 Hgb 11.4 Hct 33.6 Beta HCG, Quant < 1.0 US - Pending Signed out to Dr Castillo Pt seen by Midlevel Provider under my direct supervision Pt interviewed and examined I agree with plan as outlined by Midlevel Provider 11/11/18 00:50 *DC/Admit/Observation/Transfer Diagnosis at time of Disposition: Vaginal bleeding - Discharge Dispostion Disposition: HOME Condition at time of disposition: Stable - Referrals Referrals: Gregorio Li [Primary Care Provider] - 3 days - Patient Instructions Printed Discharge Instructions: DI for Vaginal Bleeding Additional Instructions: Thank you for choosing [facility] [place]. It was a pleasure taking care of you. 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 - Post Discharge Activity
[2018-11-10 23:53] LABS: BASO % 0.7 % (0-2.0); EOS % 1.5 % (0-4.5); HEMATOCRIT 33.6 % (32.4-45.2); HEMOGLOBIN 11.4 GM/dL (10.7-15.3); LYMPH % 24.4 % (8-40); MCH 26.7 pg (25.7-33.7); MEAN CELL VOLUME 78.3 fl (80-96); MEAN PLT VOLUME 8.4 fl (7.5-11.1); MONO % 8.1 % (3.8-10.2); NEUT % 65.3 % (42.8-82.8); PLATELET COUNT 341 K/MM3 (134-434); RBC 4.28 M/mm3 (3.60-5.2); RDW 15.7 % (11.6-15.6); WHITE BLOOD COUNT 7.4 K/mm3 (4.0-10.0)
--- NOTE | 2018-11-10 23:53 | PDOC ---
History of Present Illness - General Chief Complaint: Vaginal Bleeding Stated Complaint: VAGINAL BLEEDING,ABDOMINAL& BACK PAIN Time Seen by Provider: 11/10/18 23:02 History Source: Patient Exam Limitations: No Limitations Past History - Past Medical History Allergies/Adverse Reactions: Allergies Allergy/AdvReac Type Severity Reaction Status Date / Time No Known Allergies Allergy Verified 11/10/18 23:01 Home Medications: Ambulatory Orders Insulin Glargine,Hum.rec.anlog [Lantus Solostar PEN (NF)] 0 units SQ HS Insulin Aspart [Novolog] 100 unit SQ ACHS 11/11/18 Asthma: Yes COPD: No Diabetes: Yes (IDDM) Thyroid Disease: Yes (BENIGN 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) - Family Disease History Family Disease History: Diabetes: Mother - Immunization History Immunization Up to Date: No - Suicide/Smoking/Psychosocial Hx Smoking Status: Yes Smoking History: Current every day smoker Have you smoked in the past 12 months: No Number of Cigarettes Smoked Daily: 20 Information on smoking cessation initiated: No 'Breaking Loose' booklet given: 09/13/17 Hx Alcohol Use: No Drug/Substance Use Hx: No Substance Use Type: None *Physical Exam - Vital Signs Last Vital Signs Temp Pulse Resp BP Pulse Ox 98.4 F 93 H 18 141/88 98 11/10/18 22:56 11/10/18 22:56 11/10/18 22:56 11/10/18 22:56 11/10/18 22:56 - Physical Exam General Appearance: No: Apparent Distress Respiratory/Chest: positive: Lungs Clear, Normal Breath Sounds. negative: Respiratory Distress Cardiovascular: positive: Regular Rhythm, Regular Rate, S1, S2. negative: Murmur Female Pelvic Exam: positive: vaginal bleeding (+moderate amount of blood in vault with few clots). negative: CMT, adnexal tenderness Gastrointestinal/Abdominal: positive: Normal Bowel Sounds, Soft. negative: Tender, Distended, Guarding, Rebound Neurologic: positive: Fully Oriented, Alert, Normal Mood/Affect Moderate Sedation - Procedure Monitoring Vital Signs: Procedure Monitoring Vital Signs Temperature 98.4 F 11/10/18 22:56 Pulse Rate 93 H 11/10/18 22:56 Respiratory Rate 18 11/10/18 22:56 Blood Pressure 141/88 11/10/18 22:56 O2 Sat by Pulse Oximetry (%) 98 11/10/18 22:56 ED Treatment Course - LABORATORY CBC & Chemistry Diagram: 11/10/18 22:43 11/10/18 22:43 - RADIOLOGY Radiology Studies Ordered: Category Date Time Status TRANSVAGINAL ULTRASOUND US [US] Stat Ultrasound 11/10/18 23:27 Ordered - Medications Given in the ED: ED Medications Discontinued Medications Generic Name Dose Route Start Last Admin Trade Name Sandra PRN Reason Stop Dose Admin Acetaminophen 1,000 mg 11/10/18 23:16 11/10/18 23:46 Ofirmev Injection - IVPB 11/10/18 23:17 1,000 mg ONCE ONE Administration Medical Decision Making - Medical Decision Making 42 y/o F hx of IDDDM, pituitary tumor, chronic HAs, (hx of 2 abortions) presents with heavy vaginal bleeding with passage of clots that started around 1 hour ago along with lower abdominal cramping and back pain. LNMP was 10/13 ( though patient is not sure of exact date). Patient is unsure if she may be . Denies fever, sob, cp, abd pain, n/v/d, urinary complaints. Patient has regular menstrual cycles and her cycles are never heavy like this Will check status; r/o ectopic preg, possibly miscarriage, consider ruptured hemorrhagic cyst Plan: CBC, BMP, Bhcg, type and screen, UA, IV Tylenol, pelvic ultrasound 11/10/18 23:54 Labs reviewed and unremarkable; patient not UA with blood likely from patient's vaginal bleeding Pelvic ultrasound: Findings: Uterus measures 9.7 x 5.4 x 4.2 cm. Endometrial stripe thickness 7 mm. No free fluid noted within the cul-de-sac in the pelvis. Right ovary measures 2.8 x 1.7 cm in the sagittal plane. Left ovary measures 2.8 x 1.3 x 1.7 cm. color flow and Doppler arterial/venous signal to both ovaries demonstrated. No adnexal masses appreciated. Impression: 1.. Normal female pelvic sonogram. 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 It was a pleasure taking care of you. Please follow-up with your EQUIPMENT ENGINEER doctor for further follow-up Return to the Emergency Department if your symptoms worsen or persist, you have fever, shortness of breath, chest pain, severe abdominal pain, vomiting, feel lightheaded, weak or other concerning symptoms. - Post Discharge Activity
[2018-11-11 00:18] LABS: ANION GAP 8 MMOL/L (8-16); BLOOD UREA NITROGEN 13 mg/dL (7-18); CALCIUM 8.5 mg/dL (8.5-10.1); CHLORIDE 104 mmol/L (98-107); CO2 25 mmol/L (21-32); CREATININE 0.8 mg/dL (0.55-1.3); GLUCOSE,RANDOM 146 mg/dL (74-106); POTASSIUM 4.3 mmol/L (3.5-5.1); SODIUM 138 mmol/L (136-145)
[2018-11-11 00:42] LABS: PH,URINE 8.5 (5.0-8.0); URINE BILIRUBIN 3+ (<2.0 mg/dL); URINE GLUCOSE (UA) Trace (NEGATIVE); URINE KETONE 2+ (NEGATIVE); URINE LEUK ESTERASE 3+ (NEGATIVE); URINE NITRITE Negative (NEGATIVE); URINE PROTEIN 3+ (NEGATIVE); URINE UROBILINOGEN 4.0 E.U/dl mg/dL (0.2-1.0)
[2018-11-11 00:47] LABS: URINE APPEARANCE BLOODY; URINE COLOR RED
[2018-11-11] MEDS ORDERED: IBUPROFEN 400 MG TABLET (FP) PO ONE ×2 (01:08→01:21)
[2018-11-11 01:29] VITALS: BP 132/80; PULSE 97
== END 2018-11-11 01:51 | disposition home or self-care (01) ==
LOC: JER 22:51
PROC: 3E033NZ Introduction of Analgesics, Hypnotics, Sedatives into Peripheral Vein, Percutaneous Approach (ICD-10-PCS; principal; 2018-11-10)
DX: N93.9 Abnormal uterine and vaginal bleeding, unspecified (principal); E11.9 Type 2 diabetes mellitus without complications
CPT/HCPCS: 36415; 76830-TC; 80048; 81003; 81015; 84702; 85025; 86850; 86900; 86901; 99283-25; J0131

== ENCOUNTER 2018-12-24 00:57 | Emergency (ER) | payer OTHER ==
[2018-12-24 01:42] VITALS: BP 134/82; TEMP 98.2; BMI 30.5
[2018-12-24] MEDS ORDERED: AMOX TR/POT CLAV 875MG/125MG TABLETS (FP) PO ONE (02:12)
--- NOTE | 2018-12-24 02:12 | PDOC ---
History of Present Illness - General History Source: Patient Exam Limitations: No Limitations - History of Present Illness Initial Comments: 12/24/18 02:01 Patient is a 43 year old female with BM2 c/o left ear and left facial pain since yesterday but worsened today. Pain is 6/10 currently, constant, throbbing. Symptoms assoc/w tinnitis in the left ear and nausea, no dizziness. 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 States the pain has subsided, but has constant tinnitus. States she notices some swelling to the left side of the face today. 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 Denies vomiting, cough, sorethroat, abd pain. PMD: Dr. Li PMHX: as above PSOCHX: (+) cig 1/2 PPD, neg etoh, neg drug ALL: NKDA GENERAL/CONSTITUTIONAL: [No fever or chills. No weakness. No weight change.] HEAD, EYES, EARS, NOSE AND THROAT: [No change in vision. (+) ear pain (-) discharge. No sore throat.] CARDIOVASCULAR: [No chest pain or shortness of breath.] RESPIRATORY: [No cough, wheezing, or hemoptysis.] GASTROINTESTINAL: [No nausea, vomiting, diarrhea or constipation. No rectal bleeding.] GENITOURINARY: [No dysuria, frequency, or change in urination.] MUSCULOSKELETAL: [No joint or muscle swelling or pain. No neck or back pain.] SKIN AND BREASTS: [No rash or easy bruising.] NEUROLOGIC: [No headache, vertigo, loss of consciousness, or loss of sensation.] PSYCHIATRIC: [No depression or anxiety.] ENDOCRINE: [No increased thirst. No abnormal weight change.] HEMATOLOGIC/LYMPHATIC: [No anemia, easy bleeding, or history of blood clots.] ALLERGIC/IMMUNOLOGIC: [No hives or skin allergy. No latex allergy.] GENERAL: [The patient is awake, alert, and fully oriented, in no acute distress. ] HEAD: [Normal with no signs of trauma, left maxillary since tenderness and swelling infraorbital ] EYES: [Pupils equal, round and reactive to light, extraocular movements intact, sclera anicteric, conjunctiva clear.] ENT: [Ears left TM bulging, nares patent, oropharynx clear without exudates. Moist mucous membranes, no mastoid tenderness.] NECK: [Normal range of motion, supple with cervical chain lymphadenopathy, JVD, or masses.] LUNGS: [Breath sounds equal, clear to auscultation bilaterally. No wheezes, and no crackles.] HEART: [Regular rate and rhythm, normal S1 and S2 without murmur, rub.] ABDOMEN: [Soft, nontender, normoactive bowel sounds. No guarding, no rebound. No masses.] EXTREMITIES: [Normal range of motion, no edema. No clubbing or cyanosis. No cords, erythema, or tenderness.] NEUROLOGICAL: [Cranial nerves II through XII grossly intact. 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) - Family Disease History Family Disease History: Diabetes: Mother - Immunization History Immunization Up to Date: No - Suicide/Smoking/Psychosocial Hx Smoking Status: Yes Smoking History: Current some day smoker Have you smoked in the past 12 months: Yes Number of Cigarettes Smoked Daily: 10 Information on smoking cessation initiated: No 'Breaking Loose' booklet given: 09/13/17 Hx Alcohol Use: Yes Drug/Substance Use Hx: No Substance Use Type: None <Farhan Bentiez - Last Filed: 12/24/18 02:36> <Dayana Castillo - Last Filed: 12/24/18 02:40> - Past Medical History Allergies/Adverse Reactions: Allergies Allergy/AdvReac Type Severity Reaction Status Date / Time No Known Allergies Allergy Verified 12/24/18 01:41 Home Medications: Ambulatory Orders Insulin Glargine,Hum.rec.anlog [Lantus Solostar PEN (NF)] 0 units SQ HS Insulin Aspart [Novolog] 100 unit SQ ACHS 11/11/18 Amoxicillin/Potassium Clav [Augmentin 875-125 Tablet] 1 each PO BID #20 tablet 12/24/18 Fluticasone Prop 0.05% Nasal [Flonase -] 1 - 2 spray NS BID #1 spray.pump Ibuprofen [Motrin -] 600 mg PO TID #90 tablet 12/24/18 Pseudoephedrine HCl [Sudafed] 30 mg PO QID #20 tablet 12/24/18 *Physical Exam - Vital Signs Last Vital Signs Temp Pulse Resp BP Pulse Ox 98.2 F 96 H 17 134/82 98 12/24/18 00:57 12/24/18 00:57 12/24/18 00:57 12/24/18 00:57 12/24/18 00:57 <Farhan Benitez - Last Filed: 12/24/18 02:36> - Vital Signs Last Vital Signs Temp Pulse Resp BP Pulse Ox 98.2 F 92 H 17 134/82 98 12/24/18 00:57 12/24/18 02:28 12/24/18 00:57 12/24/18 00:57 12/24/18 00:57 <Dayana Castillo - Last Filed: 12/24/18 02:40> Moderate Sedation - Procedure Monitoring Vital Signs: Procedure Monitoring Vital Signs Temperature 98.2 F 12/24/18 00:57 Pulse Rate 96 H 12/24/18 00:57 Respiratory Rate 17 12/24/18 00:57 Blood Pressure 134/82 12/24/18 00:57 O2 Sat by Pulse Oximetry (%) 98 12/24/18 00:57 <Farhan Benitez - Last Filed: 12/24/18 02:36> - Procedure Monitoring Vital Signs: Procedure Monitoring Vital Signs Temperature 98.2 F 12/24/18 00:57 Pulse Rate 92 H 12/24/18 02:28 Respiratory Rate 17 12/24/18 00:57 Blood Pressure 134/82 12/24/18 00:57 O2 Sat by Pulse Oximetry (%) 98 12/24/18 00:57 <Dayana Castillo - Last Filed: 12/24/18 02:40> ED Treatment Course - Medications Given in the ED: ED Medications Discontinued Medications Generic Name Dose Route Start Last Admin Trade Name Freq PRN Reason Stop Dose Admin Amoxicillin/Clavulanate Potassium 1 tab 12/24/18 02:12 12/24/18 02:19 Augmentin - 875mg Tablet PO 12/24/18 02:13 1 tab ONCE ONE Administration Pseudoephedrine HCl 60 mg 12/24/18 02:13 12/24/18 02:19 Sudafed - PO 12/24/18 02:14 60 mg ONCE ONE Administration <Dayana Castillo - Last Filed: 12/24/18 02:40> Medical Decision Making - Medical Decision Making 12/24/18 02:01 Patient is a 43 year old female with BM2 c/o left ear pain since yesterday but worsened today. Pain is 6/10, constant, throbbing. Symptoms assoc/w tinnitis in the left ear and nausea, no dizziness. 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 States the pain has subsided, but has constant tinnitus. States she notices some swelling to the left side of the face and behind the ear. Symptoms consistent with sinusitis R/O mastoiditis. CT scan of the mastoid offered, however, patient has declined the radiation. Will give patient Augmentin 875 mg by mouth and Sudafed 60 mg by mouth. Referred patient to the ENT Dr. King for further evaluation. I discussed the physical exam findings, ancillary test results and final diagnoses with the patient. I answered all of the patient's questions. The patient was satisfied with the care received and felt comfortable with the discharge plan and treatment plan. The Patient agrees to follow up with the primary care physician within 24-72 hours. <Farhan Benitez - Last Filed: 12/24/18 02:36> - Medical Decision Making 12/24/18 02:[address] scan at this time, and we explained the risk of mastoiditis; however, she wants to follow as an outpatient with ENT. She will be sent home with abx and asked to return for fever or worsening left face pain. <Dayana Castillo - Last Filed: 12/24/18 02:40> *DC/Admit/Observation/Transfer <Farhan Benitez - Last Filed: 12/24/18 02:36> <Catsillo,Dayana - Last Filed: 12/24/18 02:40> Diagnosis at time of Disposition: Sinusitis Qualifiers: Sinusitis location: maxillary Chronicity: acute Recurrence: non-recurrent Qualified Code(s): J01.00 - Acute maxillary sinusitis, unspecified - Discharge Dispostion Disposition: HOME Condition at time of disposition: Stable - Prescriptions Prescriptions: Amoxicillin/Potassium Clav [Augmentin 875-125 Tablet] 1 each PO BID #20 tablet Fluticasone Prop 0.05% Nasal [Flonase -] 1 - 2 spray NS BID #1 spray.pump Ibuprofen [Motrin -] 600 mg PO TID #90 tablet Pseudoephedrine HCl [Sudafed] 30 mg PO QID #20 tablet - Referrals Referrals: Gregorio Li [Primary Care Provider] - Jonah King MD [Staff Physician] - - Patient Instructions Additional Instructions: Your Discharge Instructions: You must call primary care physician within 24 hours to arrange follow-up. Return to the Emergency Department with any new, persistent or worsening symptoms, for fever, chills, SOB, dizziness or any other concerning changes that may occur. Follow up with Dr. King in 1-2 days. - Post Discharge Activity
[2018-12-24] MEDS ORDERED: PSEUDOEPHEDRINE HCL 60 MG TABLET PO ONE (02:13)
[2018-12-24] MEDS ORDERED: AMOX TR/POT CLAV 875MG/125MG TABLETS (FP) ONE (02:16)
[2018-12-24] MEDS ORDERED: PSEUDOEPHEDRINE HCL 60 MG TABLET ONE (02:16)
[2018-12-24 02:28] VITALS: PULSE 92
== END 2018-12-24 02:28 | disposition home or self-care (01) ==
LOC: JER 00:57
DX: J01.00 Acute maxillary sinusitis, unspecified (principal); E11.9 Type 2 diabetes mellitus without complications; Z79.4 Long term (current) use of insulin
CPT/HCPCS: 99281-25

== ENCOUNTER 2019-10-01 23:59 | Emergency (ER) | payer OTHER ==
--- NOTE | 2019-10-02 01:15 | PDOC ---
History of Present Illness - General Chief Complaint: Chronic pain Stated Complaint: PAIN,KNEE Time Seen by Provider: 10/02/19 01:15 History Source: Patient - History of Present Illness Initial Comments: 10/02/19 02:22 43 year old female w b/l knee pain reports that her right knee gave out. patient with increased pain with walking to right knee. patient has chronic knee pain and arthritis and was told she needed a knee replacement. PMHX: IDDM Past History - Past Medical History Allergies/Adverse Reactions: Allergies Allergy/AdvReac Type Severity Reaction Status Date / Time No Known Allergies Allergy Verified 10/02/19 01:22 Home Medications: Ambulatory Orders Insulin Glargine,Hum.rec.anlog [Lantus Solostar PEN (NF)] 0 units SQ HS Insulin Aspart [Novolog] 100 unit SQ ACHS 11/11/18 Amoxicillin/Potassium Clav [Augmentin 875-125 Tablet] 1 each PO BID #20 tablet 12/24/18 Fluticasone Prop 0.05% Nasal [Flonase -] 1 - 2 spray NS BID #1 spray.pump Ibuprofen [Motrin -] 600 mg PO TID #90 tablet 12/24/18 Pseudoephedrine HCl [Sudafed] 30 mg PO QID #20 tablet 12/24/18 Naproxen 500 mg PO BID PRN #20 tablet 10/02/19 Asthma: Yes COPD: No Diabetes: Yes (IDDM) Thyroid Disease: Yes (BENIGN 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) - Immunization History Immunization Up to Date: No - Psycho Social/Smoking Cessation Hx Smoking Status: Yes Smoking History: Current some day smoker Have you smoked in the past 12 months: Yes Number of Cigarettes Smoked Daily: 10 'Breaking Loose' booklet given: 09/13/17 Hx Alcohol Use: Yes Drug/Substance Use Hx: No Substance Use Type: None *Physical Exam - Vital Signs 10/02/19 02:29 Vital Signs 10/02/19 00:00 Temperature 98.5 F Pulse Rate 98 H Respiratory 19 Rate Blood Pressure 123/67 O2 Sat by Pulse 98 Oximetry (%) - Physical Exam General Appearance: Yes: Appropriately Dressed Respiratory/Chest: positive: Lungs Clear, Normal Breath Sounds Extremity: positive: Other (right knee pain on palpation, mild joint effusion) . negative: Pedal Edema, Swelling, Calf Tenderness Integumentary: positive: Normal Color, Dry, Warm Neurologic: positive: Fully Oriented, Alert, Normal Mood/Affect Medical Decision Making - Medical Decision Making A: chronic b/l knee pain P: xray: degenerative, mild joint effusion Discharge - Discharge Information Problems reviewed: Yes Clinical Impression/Diagnosis: Knee pain, bilateral Qualifiers: Chronicity: acute Qualified Code(s): M25.561 - Pain in right knee Condition: Fair Disposition: HOME - Additional Discharge Information Prescriptions: Naproxen 500 mg PO BID PRN #20 tablet PRN Reason: Pain - Follow up/Referral Referrals: Gregorio Li [Primary Care Provider] - Og Hernandez MD [Staff Physician] - Call tomorrow - Patient Discharge Instructions Patient Printed Discharge Instructions: DI for Knee Pain Additional Instructions: please follow up with n orthopedic doctor as soon as possible. take naproxen as prescribed Additional Instructions: * Please call your personal physician to report your Emergency Department visit and to report your progress, if any. * If there is no improvement in symptoms in 2 days call your physician. * Return to the Emergency Department for any worsening symptoms. - Post Discharge Activity Work/Back to School Note: Back to Work
--- NOTE | 2019-10-02 01:16 | PDOC ---
Medical Decision Making - Medical Decision Making 10/02/19 01:16 Patient seen by the advanced practice provider under my direct supervision. Ancillary testing reviewed as necessary. I agree with plan as outlined by the advanced practice provider. Discharge - Discharge Information Problems reviewed: Yes Clinical Impression/Diagnosis: Knee pain, bilateral Qualifiers: Chronicity: acute Qualified Code(s): M25.561 - Pain in right knee Condition: Fair - Additional Discharge Information Prescriptions: Naproxen 500 mg PO BID PRN #20 tablet PRN Reason: Pain - Follow up/Referral Referrals: Gregorio Li [Primary Care Provider] - Og Hernandez MD [Staff Physician] - Call tomorrow - Patient Discharge Instructions Patient Printed Discharge Instructions: DI for Knee Pain Additional Instructions: please follow up with n orthopedic doctor as soon as possible. take naproxen as prescribed Additional Instructions: * Please call your personal physician to report your Emergency Department visit and to report your progress, if any. * If there is no improvement in symptoms in 2 days call your physician. * Return to the Emergency Department for any worsening symptoms. - Post Discharge Activity Work/Back to School Note: Back to Work
[2019-10-02 01:22] VITALS: BMI 32.8
[2019-10-02] MEDS ORDERED: NAPROXEN 500 MG TABLET (FP) PO ONE (02:23)
[2019-10-02] MEDS ORDERED: NAPROXEN 500 MG TABLET (FP) ONE (02:27)
[2019-10-02 05:32] VITALS: BP 135/85; PULSE 85; TEMP 98.2
== END 2019-10-02 03:25 | disposition home or self-care (01) ==
LOC: JER 23:59
DX: M17.0 Bilateral primary osteoarthritis of knee (principal); M25.461 Effusion, right knee; E11.9 Type 2 diabetes mellitus without complications; Z79.4 Long term (current) use of insulin; J45.909 Unspecified asthma, uncomplicated; D35.2 Benign neoplasm of pituitary gland
CPT/HCPCS: 73560-TC-LT-FY; 73560-TC-RT-FY; 99281-25

== ENCOUNTER 2022-02-17 19:26 | Emergency (ER) | payer OTHER ==
[2022-02-17 19:42] VITALS: BP 142/76; PULSE 81; TEMP 98.9; BMI 33.1
[2022-02-17] MEDS ORDERED: FAMOTIDINE 20 MG/50 ML IVPB 20 MG/50 ML MG IVPB ONE ×2 (19:48→20:11)
[2022-02-17] MEDS ORDERED: ACETAMINOPHEN 1000 MG/100 ML BAG IVPB ONE (19:49)
[2022-02-17] MEDS ORDERED: MAG HYDROX/AL HYDROX/SIMETH 30 ML UNIT-DOSE CUP PO ONE (19:49)
[2022-02-17] MEDS ORDERED: ACETAMINOPHEN INJECTION 100 ML IVPB ONE (19:52)
[2022-02-17] MEDS ORDERED: MAG HYDROX/AL HYDROX/SIMETH 30 ML UNIT-DOSE CUP ONE (19:52)
[2022-02-17 20:37] LABS: ALBUMIN 3.5 g/dl (3.4-5.0); BILIRUBIN,TOTAL 0.3 mg/dl (0.2-1); CALCIUM 9.6 mg/dl (8.5-10); MAGNESIUM 1.7 mg/dL (1.8-2.4); TOT PROT 6.6 g/dl (6.4-8.2)
[2022-02-17] MEDS ORDERED: SODIUM CHLORIDE 0.9% 500 ML INFUS.BAG IV ONE (20:55)
[2022-02-17 21:40] LABS: BASO % 0.5 % (0-2.0); EOS % 1.9 % (0-4.5); HEMATOCRIT 37.7 % (32.4-45.2); HEMOGLOBIN 12.8 GM/dL (10.7-15.3); LYMPH % 22.7 % (8-40); MCH 27.9 pg (25.7-33.7); MEAN CELL VOLUME 82.3 fl (80-96); MEAN PLT VOLUME 8.8 fl (7.5-11.1); MONO % 8.8 % (3.8-10.2); NEUT % 66.1 % (42.8-82.8); PLATELET COUNT 284 10^3/uL (134-434); RBC 4.59 M/mm3 (3.60-5.2); RDW 16.4 % (11.6-15.6); WHITE BLOOD COUNT 8.1 K/mm3 (4.0-10.0)
[2022-02-17] MEDS ORDERED: KETOROLAC TROMETHAMINE 30 MG/1 ML VIAL IVPUSH ONE (22:11)
[2022-02-17] MEDS ORDERED: KETOROLAC TROMETHAMINE 30 MG/1 ML VIAL ONE (22:15)
== END 2022-02-17 22:38 | disposition home or self-care (01) ==
LOC: FER 19:26
PROC: 3E033GC Introduction of Other Therapeutic Substance into Peripheral Vein, Percutaneous Approach (ICD-10-PCS; principal; 2022-02-17)
DX: R07.89 Other chest pain (principal)
CPT/HCPCS: 36415; 71046-TC-FY; 80053; 82550; 82553; 82962; 83735; 84484; 85025; 93005; 99285-25

== ENCOUNTER 2022-04-27 12:55 | Emergency (ER) | payer OTHER ==
[2022-04-27 13:11] VITALS: BP 139/74; PULSE 77; TEMP 98; BMI 32.8
[2022-04-27] MEDS ORDERED: ONDANSETRON 4 MG/2 ML VIAL IVPB ONE (13:33)
[2022-04-27] MEDS ORDERED: FAMOTIDINE 20 MG/50 ML IVPB 20 MG in PREMIX 50 IVPB ONE (13:33)
[2022-04-27] MEDS ORDERED: MAG HYDROX/AL HYDROX/SIMETH -MYLANTA- ORAL SUSPENSION PO ONE (13:33)
[2022-04-27] MEDS ORDERED: ONDANSETRON 4 MG/2 ML VIAL ONE (14:07)
[2022-04-27] MEDS ORDERED: FAMOTIDINE 20 MG/50 ML IVPB 20 MG/50 ML MG IVPB ONE (14:07)
[2022-04-27] MEDS ORDERED: MAG HYDROX/AL HYDROX/SIMETH 30 ML UNIT-DOSE CUP ONE (14:07)
[2022-04-27 14:18] LABS: HEMATOCRIT 39.6 % (32.4-45.2); HEMOGLOBIN 13.6 G/dL (10.7-15.3); MCH 28.8 pg (25.7-33.7); MCHC 34.4 g/dl (32.0-36.0); MEAN CELL VOLUME 83.8 fl (80-96); MEAN PLT VOLUME 8.7 fl (7.5-11.1); PLATELET COUNT 283.9 10^3/uL (134-434); RBC 4.72 10^6/uL (3.60-5.2); WHITE BLOOD COUNT 6.5 10^3/uL (4.0-10.8)
[2022-04-27 14:25] LABS: ALBUMIN 3.6 g/dl (3.4-5.0); BILIRUBIN,TOTAL 0.3 mg/dl (0.2-1); CREATININE 0.9 mg/dl (0.55-1.3); TOT PROT 6.6 g/dl (6.4-8.2)
[2022-04-27] MEDS ORDERED: KETOROLAC TROMETHAMINE 30 MG/1 ML VIAL IVPUSH ONE (14:46)
[2022-04-27] MEDS ORDERED: KETOROLAC TROMETHAMINE 30 MG/1 ML VIAL ONE (14:49)
[2022-04-27 14:55] LABS: EPITHELIAL CELLS MODERATE /hpf
== END 2022-04-27 15:00 | disposition home or self-care (01) ==
LOC: FER 12:55
PROC: 3E033GC Introduction of Other Therapeutic Substance into Peripheral Vein, Percutaneous Approach (ICD-10-PCS; principal; 2022-04-27)
DX: R30.0 Dysuria (principal)
CPT/HCPCS: 36415; 80053; 81003; 81015; 83690; 84484; 84703; 85027; 87086; 87186; 93005; 99285-25

== ENCOUNTER 2023-08-04 12:51 | Emergency (ER) | payer OTHER ==
[2023-08-04 12:56] VITALS: BP 153/86; PULSE 97; RESP 20; TEMP 99; BMI 34.4
[2023-08-04] MEDS ORDERED: SODIUM CHLORIDE 0.9% 500 ML INFUS.BAG IV ONE (13:42)
[2023-08-04] MEDS ORDERED: ACETAMINOPHEN 1000 MG/100 ML BAG IVPB ONE (13:42)
[2023-08-04] MEDS ORDERED: ACETAMINOPHEN INJECTION 100 ML IVPB ONE (14:16)
[2023-08-04 14:34] LABS: EPI CELLS >36 /uL (0-25.1); HYALINE CASTS 1 /uL (0-3.1); PH,URINE 5.5 (5.0-8.0); URINE APPEARANCE TURBID; URINE BACTERIA 125 /uL (0-1359); URINE BILIRUBIN NEGATIVE (NEGATIVE); URINE COLOR YELLOW; URINE GLUCOSE (UA) NEGATIVE (NEGATIVE); URINE KETONE TRACE (NEGATIVE); URINE LEUK ESTERASE 3+ (NEGATIVE); URINE NITRITE NEGATIVE (NEGATIVE); URINE PROTEIN 3+ (NEGATIVE); URINE RBC 39 /uL (0-23.9); URINE WBC 3278 /uL (0-25.8)
[2023-08-04 14:42] LABS: BASO % 0.5 % (0-2.0); EOS % 3.2 % (0-4.5); HEMATOCRIT 40.8 % (32.4-45.2); HEMOGLOBIN 13.4 GM/dL (10.7-15.3); LYMPH % 17.8 % (8-40); MCH 27.8 pg (25.7-33.7); MCHC 32.8 g/dl (32.0-36.0); MEAN CELL VOLUME 84.7 fl (80-96); MEAN PLT VOLUME 8.7 fl (7.5-11.1); MONO % 6.8 % (3.8-10.2); NEUT % 71.7 % (42.8-82.8); PLATELET COUNT 352 10^3/uL (134-434); RBC 4.82 M/mm3 (3.60-5.2); RDW 14.9 % (11.6-15.6); WHITE BLOOD COUNT 8.9 K/mm3 (4.0-10.0)
[2023-08-04] MEDS ORDERED: CEFTRIAXONE 1,000 MG in DEXTROSE 5%-WATER - 50 ML IVPB ONE (14:43)
[2023-08-04] MEDS ORDERED: CEFTRIAXONE 1 GM/50 ML BAG ONE (14:58)
[2023-08-04 15:12] LABS: POTASSIUM 4.4 mmol/L (3.5-5.1)
[2023-08-04] MEDS ORDERED: MAG HYDROX/AL HYDROX/SIMETH 30 ML UNIT-DOSE CUP PO ONE (15:14)
[2023-08-04] MEDS ORDERED: FAMOTIDINE 20 MG/50 ML IVPB 20 MG/50 ML MG IVPB ONE ×2 (15:14→16:24)
[2023-08-04 15:15] LABS: ALBUMIN 3.4 g/dl (3.4-5.0); BLOOD UREA NITROGEN 13.8 mg/dL (7-18); CALCIUM 9.5 mg/dL (8.5-10.1)
[2023-08-04] MEDS ORDERED: SUCRALFATE 1 GM TABLET (FP) PO ONE ×2 (15:16→15:24)
[2023-08-04 15:19] LABS: CREATININE 0.9 mg/dL (0.55-1.3)
[2023-08-04 15:20] LABS: BILIRUBIN,TOTAL 0.6 mg/dL (0.2-1); TOT PROT 7.2 g/dl (6.4-8.2)
[2023-08-04] MEDS ORDERED: METOCLOPRAMIDE HCL INJECTION 10 MG/2 ML VIAL IVPB ONE (15:22)
[2023-08-04] MEDS ORDERED: METOCLOPRAMIDE HCL INJECTION 10 MG/2 ML VIAL ONE (16:23)
[2023-08-04] MEDS ORDERED: MAG HYDROX/AL HYDROX/SIMETH 30 ML UNIT-DOSE CUP ONE (16:24)
[2023-08-04] MEDS ORDERED: SUCRALFATE 1 GM TABLET (FP) ONE (16:31)
== END 2023-08-04 17:15 | disposition home or self-care (01) ==
LOC: JER 12:51
PROC: 3E03329 Introduction of Other Anti-infective into Peripheral Vein, Percutaneous Approach (ICD-10-PCS; principal; 2023-08-04)
PROC: 3E033NZ Introduction of Analgesics, Hypnotics, Sedatives into Peripheral Vein, Percutaneous Approach (ICD-10-PCS; 2023-08-04)
PROC: 3E033GC Introduction of Other Therapeutic Substance into Peripheral Vein, Percutaneous Approach (ICD-10-PCS; 2023-08-04)
PROC: 3E033GC Introduction of Other Therapeutic Substance into Peripheral Vein, Percutaneous Approach (ICD-10-PCS; 2023-08-04)
DX: R11.2 Nausea with vomiting, unspecified (principal); R10.84 Generalized abdominal pain; R30.0 Dysuria; R14.0 Abdominal distension (gaseous); R13.10 Dysphagia, unspecified; K59.00 Constipation, unspecified; N12 Tubulo-interstitial nephritis, not specified as acute or chronic
CPT/HCPCS: 36415; 80053; 81003; 83690; 83735; 84100; 84703; 85025; 87086; 87186; 93005; 93010; 99284-25